=== PATIENT | female | born 1980 ===

== ENCOUNTER 2025-03-01 09:55 | Outpatient (AMB) | payer OTHER, SELFPAY ==
--- OUTSIDE RECORDS SUMMARY | 2023-12-23 11:52 | XMS_ITS | Encounter Summary ---
Author Organization [facility] Address [address] [place] [address] Care Team Providers Care Phonograph Cartridge Assembler Name Role Phone Jose Avalos MD Primary Care Provider [phone] Encounter Details Date Type Department Care Team (Late st Contact Info) Description 12/23/2023 12:52 PM EDT Hospital Encounter TH HISTORIC ENCOUNTERS [facility] ONLY Yana Cheney, TH[address]ES[address] [place] [address] Social History Tobacco Use Types Packs/Day Years Used Date Smoking Tobacco: Never Smokeless Tobacco: Never Alcohol Use Standard Drinks/Week Comments Yes 0 (1 standard drink = 0.6 oz pur e alcohol) Interpersonal Safety Answer Date Record ed Physical Abuse Unrecognized value 11/01/2024 Verbal Abuse Unrecognized value 11/01/2024 Comments No Sex and Gender Information Value Date Recorded Sex Assigned at Female 10/18/2024 2:54 PM EDT Legal Sex Female 11:39 PM EST Gender Identity Female 10/18/2024 2:54 PM EDT Sexual Orientation Straight 10/18/2024 2: 54 PM EDT documented as of this encounter Last Filed Vital Signs Vital Sign Reading Time Taken Comments Blood Pressure 138/85 12/23/2023 1:24 PM EDT Sitting Left arm Pulse 61 12/23/2023 1:24 PM EDT Temperature - - Respiratory Rate - - Oxygen Saturation - - Inhaled Oxygen Concentration - - Weight 56.7 kg (125 lb) 12/23/2023 1:24 PM EDT Simultaneous filing. User may not have seen previous data. Height 157.5 cm (5' 2 ) 12/23/2023 1:24 PM EDT Body Mass Index 22.86 12/23/2023 1:24 PM EDT documented in this encounter Functional Status * Calculated C-SSRS Risk Score (Lifetime/Recent) Answer Date of Assessment Author No Risk Indicated 02/09/2025 11:17 PM Rehana Valiente RN * [place] Suicide Severity Rating Scale (Screener/Recent Self-Report) Question Answer Date of Assessment Author 1. Wish to be (Past 1 Month) No 025 11:17 PM Rehana Valiente RN 2. Non-Specific Active Suici alan Thoughts (Past 1 Month) No 02/09/2025 11:17 PM Rehana Valiente RN 6. Suicidal Behavior (Lifetime) No 11:17 PM Rehana Valiente RN documented as of this encounter Progress Notes * THERESA Aguirre - 12/23/2023 1:00 PM EDT HPI: Manju Erazo is a 43 y.o. year old female referred to our center by Jose Avalos MD for evaluation and management of headaches 43 yo female with PMH fibromyalgia currently on Lyrica and Cymbalta, anxiety , depression she talk psychatrist she was Cymbalta for her mood to, psychotherapy , s/p biartic surgery 04/2019 she lost 203 lbs .PCOS, prediabetes, gastroparesis, GERD, nonalcoholic fatty liver disease, COY, migraines, chronic headaches, depression, insomnia, anxiety, Per patient she was recently diagnosed with adrenal insufficiency She will be seeing endocrinology in late November Interval history: Patient returns for follow-up visit. She had Botox injections performed by Dr. Valenzuela on 12/08/2023. She was also was prescribed Nurtec for migraine prevention at last visit and given Ubrelvy for acute rescue treatment. She states that she has had daily migraines. She had another ER visit for severe headache with blurry vision. She states Nurtec is not effective. Insurance did not cover Ubrelvy, although this was effective for her. MRI brain performed after last visit normal. Lyme, EMMA negative. Last visit history: Patient presents for evaluation of headache. Symptoms began about since she was 15yo . Generally, the headaches last about several hours and occur continuously. The headaches do not seem to be related to any time of the day. The headaches are usually severe, pounding, sharp, squeezing and throbbingand are located in bitemporal , radiating to occipital region The patient rates her most severe headaches a 10 on a scale from 1 to 10. Recently, the headaches have been increasing in severity, but decreasing in frequency. Work attendance or other daily activities are affected by the headaches. Precipitating factors include: light and loud noise . The headaches are usually used to have visual aura ,not anympre . Associated neurologic symptoms: dizziness and nausea , vomiting , phonophobia , photophobia . The patient denies speech difficulties and vision problems. Home treatment has included She failed amitriptyline , Topamax caused suicidal ideation , emagility failed , depakote allergic cant recall, Amivog , patient went to headache clinic in [facility] without help in her headaches she was on narcotics at that point. Other history includes: migraine headaches diagnosed in the past. She started botox 3 years ago , prior to utilizing Botox she would have 30 headaches associated with the neck pain she had headache reduction to 12 headaches with a good response in the first month that continues to wear off approaching the third month in the past with her previous neurologist she was treated for spasmodic torticollis and orofacial dyskinesias, over the time she did she did you notice a difference with her Botox patient was getting Botox injections different than the FDA approved sites, tox was stopped Patient more recently has been getting occipital nerve block with Dr. Mak she does not notice a lot of difference She uses Fioricet as abortive therapy Past Medical History: Diagnosis Date ??? Anxiety ??? Asthma ??? Depression ??? Heart disease ??? IBS (irritable bowel syndrome) ??? Migraine ??? Sleep apnea Current Outpatient Medications Medication Sig Dispense Refill ??? albuterol 108 (90 Base) MCG/ACT inhaler Inhale 2 puffs into the lungs every 4 (four) hours as needed for wheezing. ??? bjebjgcbre-duwxdmyxsuoix-xopugyhz 50-325-40 MG per tablet Take 1 tablet by mouth 2 (two) times a day. ??? Calcium Carbonate (CALCIUM 600 PO) Take by mouth. ??? Diclofenac Sodium 1 % GEL Apply 1 drop topically 4 (four) times a day. ??? DULoxetine (CYMBALTA) DR capsule 20 mg Take 1 capsule (20 mg total) by mouth daily. ??? DULoxetine (CYMBALTA) DR capsule 60 mg Take 1 capsule (60 mg total) by mouth daily. ??? hydrocortisone (ANUSOL-HC) 2.5 % CREA perianal cream Place around the anus 2 (two) times a day. ??? lansoprazole (lansoprazole) 30 MG capsule Take 1 capsule (30 mg total) by mouth daily. ??? Lifitegrast (Xiidra) 5 % SOLN Apply to eye. ??? meloxicam (MOBIC) 15 MG tablet Take 1 tablet (15 mg total) by mouth daily. ??? methylPREDNISolone (MEDROL DOSEPACK) 4 MG tablet follow package directions 21 tablet 0 ??? Multiple Vitamin tablet Take 1 tablet by mouth daily. ??? Plecanatide 3 MG TABS Take 1 tablet by mouth daily. ??? polyethylene glycol (MIRALAX) 17 g packet Take 17 g by mouth 2 (two) times a day. ??? pregabalin (LYRICA) capsule 50 mg Take 1 capsule (50 mg total) by mouth 3 (three) times a day. ??? rimegepant (Nurtec) 75 MG TBDP ODT Take 1 tablet (75 mg total) by mouth every other day. 15 tablet 3 ??? Ubrogepant (Ubrelvy) 100 MG TABS Take 100 mg by mouth 2 (two) times a day as needed. 16 tablet 3 No current facility-administered medications for this visit. Allergies Allergen Reactions ??? Abilify [Aripiprazole] ??? Amben [Aminobenzoate] ??? Celebrex [Celecoxib] ??? Doxepin ??? Ibuprofen ??? Imitrex [Sumatriptan] ??? Indomethacin ??? Lamictal [Lamotrigine] ??? Latuda [Lurasidone] ??? [place] ??? Metronidazole ??? Chantale-Be [Norethindrone] ??? Oxycontin [Oxycodone] ??? Percocet [Oxycodone-Acetaminophen] ??? Phenergan [Promethazine] ??? Prednisone ??? Reglan [Metoclopramide] ??? Reyvow [Lasmiditan] ??? Topamax [Topiramate] ??? Tramadol ??? Trazodone Chest pain ??? Trintellix [Vortioxetine] ??? Wellbutrin [Bupropion] ??? 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 Neurologic Exam: BP 138/85 (BP Location: Left arm, Patient Position: Sitting) Pulse 61 Temp 96.8 ??F (36 ??C) (Temporal) Ht 5' 2 (1.575 m) Wt 56.7 kg (125 lb) BMI 22.86 kg/m?? MS: AOx3 CN: perrla, , no red desaturation, fundoscopic exam normal bilaterally, V1-3 intact to LT, face symmetric, bilateral SCM/trapezius 5/5, tongue/uvula/palate midline Motor: 5/5 in all extremities Sensation: Intact to light touch, temperature, and vibration in all extremities Reflexes: 2+ in bilateral biceps and patellae, toes downgoing bilaterally Cerebellar: FNF intact bilaterally, FFM intact bilaterally, STEPHANY intact bilaterally, tandem gait normal, romberg negative Labs: Ordered Imaging: All images were reviewed by me. A/P: Manju Erazo is a 43 y.o. year old female referred to our center by Jose Avalos MD for evaluation and management of refractory migraine headache. She has failed multiple is scheduled for Botox injections on 03/06/24. In the meantime, for symptomatic treatment will add Medrol Dosepak to try to break cycle of migraine. Ubrelvy has worked well as an abortive treatment for migraine but insurance has not covered-???I will see if we have an option to appeal. She also expresses interest in consultation with a migraine specialist and will refer to [facility] headache clinic. -Add Medrol Dosepak -Try to obtain insurance approval for Ubrelvy for treatment of acute migraine -Plan for Botox in February -Enter referral for headache clinic at [facility] in 2 months for follow up The patient and I discussed the clinical picture during today's appointment. Additional time was spent prior to the actual appointment reviewing records, lab values and imaging results and preparing documentation for today's visit. There was also time spent following the in person visit documenting, arranging for further diagnostic testing and follow-up appointments. The entire time spent in thisprocess was greater than 30 minutes. The majority of the actual sdzx-qj-obfj visit was spent counseling the patient with respect to the current neurological picture. Yana Cheney PA-C documented in this encounter Plan of Treatment Upcoming Encounters Date Type Department Care Team (Late st Contact Info) Description 03/01/2025 1:00 PM EST Office Visit [facility] - [address] [place] [phone] Raina Valenzuela MD [address] [place] [phone] 03/20/2025 10:15 AM EST Office Visit Orthopedic Surgery - [address] [place] [address] Savannah iJmenez MD [address] [place] [phone] 03/20/2025 11:00 AM EST Evaluation [facility] [address] [place] [phone] Juli Moulton OT documented as of this encounter Visit Diagnoses Not on filedocumented in this encounter Care Teams Phonograph Cartridge Assembler Relationship Specialty Start Date End Date Jose Avalos MD PCP - General Internal Medicine 07/19/14 01/11/24 documented as of this encounter
[2025-03-01 09:58] VITALS: BMI 23.6
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
--- OUTSIDE RECORDS SUMMARY | 2025-03-01 12:11 | XMS_ITS | Encounter Summary ---
Author Organization [facility] Address [address] [place] [address] Phone Care Team Providers Care Hydraulic Engineer Name Role Phone Jose Avalos MD Primary Care Provider [phone] Encounter Details Date Type Department Care Team (Late Contact Info) Description 10/20/2023 Documentation Only [facility] [address] [place] [address] Denisha Philippe [address] [place] [phone] Social History Tobacco Use Types Packs/Day Years Used Date Smoking Tobacco: Never Smokeless Tobacco: Never Comments Unknown Sex and Gender Information Value Date Recorded Sex Assigned at Not on file Legal Sex Female 9:51 AM EDT Gender Identity Not on file Sexual Orientation Not on file documented as of this encounter Plan of Treatment Upcoming Encounters Date Type Department Care Team (Late st Contact Info) Description 04/23/2025 2:45 PM EST Office Visit [facility] [address] [place] [address] Curtis Weri MD [address] [place] [address] [place] [address] documented as of this encounter Visit Diagnoses Not on filedocumented in this encounter Care Teams Hydraulic Engineer Relationship Specialty Start Date End Date Jose Avalos MD PCP - General Internal Medicine 01/28/23 documented as of this encounter
--- OUTSIDE RECORDS SUMMARY | 2025-03-01 12:11 | XMS_ITS | Encounter Summary ---
Author Organization [facility] Address [address] [place] [address] Phone Care Team Providers Care Dope House Operator Helper Name Role Phone Jose Avalos MD Primary Care Provider [phone] Encounter Details Date Type Department Care Team (Late Contact Info) Description 04/24/2024 Documentation Only [facility] [address] [place] [address] Denisha Philippe [address] [place] [phone] Social History Tobacco Use Types Packs/Day Years [...] Visit [facility] [address] [place] [address] Curtis Weir MD [address] [place] [address] [place] [address] documented as of this encounter Visit Diagnoses Not on filedocumented in this encounter Care Teams Dope House Operator Helper Relationship Specialty Start Date End Date Jose Avalos MD PCP - General Internal Medicine 01/28/23 documented as of this encounter
--- OUTSIDE RECORDS SUMMARY | 2025-03-01 12:11 | XMS_ITS | Encounter Summary ---
Author Organization [facility] Address [address] [place] [address] Phone Care Team Providers Care Bill Of Lading Clerk Name Role Phone Jose Avalos MD Primary Care Provider [phone] Encounter Details Date Type Department Care Team (Late Contact Info) Description 08/16/2023 Documentation Only [facility] [address] [place] [address] Curtis Weir MD [address] [place] [address] [place] [phone] Social History Tobacco Use Types Packs/Day Years [...] Visit [facility] [address] [place] [address] Curtis Weir MD [address] [facility] [place] [address] documented as of this encounter Visit Diagnoses Not on filedocumented in this encounter Care Teams Bill Of Lading Clerk Relationship Specialty Start Date End Date Jose Avalos MD PCP - General Internal Medicine 01/28/23 documented as of this encounter
--- OUTSIDE RECORDS SUMMARY | 2025-03-01 12:11 | XMS_ITS | Encounter Summary ---
Author Organization [facility] Address [address] [place] [address] Phone Care Team Providers Care Managing Supervisor Name Role Phone Jose Avalos MD Primary Care Provider [phone] Encounter Details Date Type Department Care Team (Late st Contact Info) Description 08/11/2023 Documentation Only [facility] [address] [place] [address] [place] [phone] Social History Tobacco Use Types Packs/Day Years [...] Visit [facility] [address] [place] [address] Curtis Weir MD [address] [place] [address] [place] [address] documented as of this encounter Visit Diagnoses Not on filedocumented in this encounter Care Teams Managing Supervisor Relationship Specialty Start Date End Date Jose Avalos MD PCP - General Internal Medicine 01/28/23 documented as of this encounter
--- OUTSIDE RECORDS SUMMARY | 2025-03-01 12:11 | XMS_ITS | Encounter Summary ---
Author Organization [facility] Address [address] [place] [address] Phone Care Team Providers Care Ruffling Hemmer Automatic Name Role Phone Jose Avalos MD Primary Care Provider [phone] Encounter Details Date Type Department Care Team (Late Contact Info) Description 10/20/2023 Documentation Only [facility] [address] [place] [address] Denisha Philippe [address] [place] [phone] Social History Tobacco Use Types Packs/Day Years [...] Visit [facility] [address] [place] [address] Curtis Weir MD [address] [place] [address] [place] [address] documented as of this encounter Visit Diagnoses Not on filedocumented in this encounter Care Teams Ruffling Hemmer Automatic Relationship Specialty Start Date End Date Jose Avalos MD PCP - General Internal Medicine 01/28/23 documented as of this encounter
--- OUTSIDE RECORDS SUMMARY | 2025-03-01 12:11 | XMS_ITS | Encounter Summary ---
Author Organization [facility] Address [address] [place] [address] Phone Care Team Providers Care Early Breastfeeding Care Specialist Name Role Phone Jose Avalos MD Primary Care Provider [phone] Encounter Details Date Type Department Care Team (Late Contact Info) Description 10/20/2023 Documentation Only [facility] [address] [place] [address] Denisha Philippe [address] [place] [phone] Social History Tobacco Use Types Packs/Day Years [...] Visit [facility] [address] [place] [address] Curtis Weir MD [address] [place] [address] [place] [address] documented as of this encounter Visit Diagnoses Not on filedocumented in this encounter Care Teams Early Breastfeeding Care Specialist Relationship Specialty Start Date End Date Jose Avalos MD PCP - General Internal Medicine 01/28/23 documented as of this encounter
--- OUTSIDE RECORDS SUMMARY | 2025-03-01 12:11 | XMS_ITS | Encounter Summary ---
Author Organization [facility] Address [address] [place] [address] Phone Care Team Providers Care Milieu Manager Name Role Phone Jose Avalos MD Primary Care Provider [phone] Encounter Details Date Type Department Care Team (Late Contact Info) Description 04/24/2024 Documentation Only [facility] [address] [place] [address] Denisha Philippe [address] [place] [phone] Social History Tobacco Use Types Packs/Day Years [...] Visit [facility] [address] [place] [address] Curtis Weir MD [address] [place] [address] [place] [address] documented as of this encounter Visit Diagnoses Not on filedocumented in this encounter Care Teams Milieu Manager Relationship Specialty Start Date End Date Jose Avalos MD PCP - General Internal Medicine 01/28/23 documented as of this encounter
--- OUTSIDE RECORDS SUMMARY | 2025-03-01 12:11 | XMS_ITS | Encounter Summary ---
Author Organization [facility] Address [address] [place] [address] Phone Care Team Providers Care Gasoline Truck Crane Operator Name Role Phone Jose Avalos MD Primary Care Provider [phone] Encounter Details Date Type Department Care Team (Late st Contact Info) Description 10/22/2023 Documentation Only [facility] [address] [place] [address] Edy Craven [place] [address] [place] [phone] Social History Tobacco Use Types Packs/Day Years [...] Visit [facility] [address] [place] [address] Curtis Weir MD [address] [place] [address] [place] [address] documented as of this encounter Visit Diagnoses Not on filedocumented in this encounter Care Teams Gasoline Truck Crane Operator Relationship Specialty Start Date End Date Jose Avalos MD PCP - General Internal Medicine 01/28/23 documented as of this encounter
--- OUTSIDE RECORDS SUMMARY | 2025-03-01 12:11 | XMS_ITS | Clinical Summary ---
Author Organization [facility] Address [address] [place] [phone] Phone Care Team Providers Care Junior Project Manager Name Role Phone Physician, Pcp Unknown Primary Care Provider Celia vailable Allergies Active Allergy Reactions Criticality Noted Date Comments Aripiprazole High 08/08/2020 Other Reaction(s): dizziness/headache Zolpidem Rash Low 02/01/2017 Other Reaction(s): sleepwalk Headaches and rash Lumateperone 01/21/2025 Celecoxib Unknown High 08/23/2014 Doxepin 08/08/2020 Other Reaction(s): depression,angry Sumatriptan Rash 08/23/2014 Lurasidone Nausea And Vomiting,Dizziness 09/02/2021 Other Reaction(s): headaches [place] High 08/08/2020 Other Reaction(s): suicidal thoughts Norethindrone (Contraceptive) 04/25/2024 Oxcarbazepine 11/17/2024 Other Reaction(s): Behavioral Problems Worsened migraines, made her very angry, fidgety and more depressed. Oxycodone-Acetaminophen Itching High 10/05/2014 Other Reaction(s): Hives/Urticaria Promethazine 08/08/2020 Other Reaction(s): jumpy Metoclopramide Hcl 04/25/2024 Lasmiditan 04/30/2023 Tramadol Other High 06/25/2017 Other Reaction(s): Suicidal thoughts Suicidal ideation Trazodone Headache Low 12/28/2016 Other Reaction(s): OTHER Chest pain Vortioxetine High 07/15/2017 Other Reaction(s): headache insomnia Headache, insomnia Vilazodone 04/25/2024 Cariprazine Headache 11/09/2022 Bupropion Hcl 04/25/2024 Medications alcohol swabs pads, medicated by Not Applicable route. 1 Active albuterol HFA (PROAIR HFA ; PROVENTIL HFA ; VENTOLIN HFA) 90 mcg/actuation inhaler Active topiramate (TOPAMAX) 25 mg tablet Take 4 tablets (100 mg total) by mouth 2 (two) times a day. Active pregabalin (LYRICA) 300 mg capsule Take 1 capsule (300 mg total) by mouth 2 (two) times a day. Active lansoprazole (PREVACID) [address] capsule Take 1 capsule (30 mg total) by mouth 1 (one) time each day before breakfast. Do not crush or chew. Active methocarbamoL (ROBAXIN) 750 mg tablet Take 1 tablet (750 mg total) by mouth 4 (four) times a day for 10 days. 40 each 5 Active venlafaxine (EFFEXOR) 75 mg tablet Take 1 tablet (75 mg total) by mouth 1 (one) time each day. Active LORazepam (ATIVAN) 1 mg tablet Take 1 tablet (1 mg total) by mouth every 6 (six) hours if needed for anxiety. Active tiZANidine (ZANAFLEX) 4 mg capsule Take 1 capsule (4 mg total) by mouth 3 (three) times a day. Active diclofenac (VOLTAREN) 50 mg EC tablet Take 1 tablet (50 mg total) by mouth 2 (two) times a day. Do not crush, chew, or split. Active diclofenac (VOLTAREN) 1 % topical gel Apply 1 g topically 3 (three) times a day. Active lidocaine 4 % patch Apply 1 patch topically. Active multivitamin with minerals tablet Take 1 tablet by mouth 1 (one) time each day. Active acetaminophen (TYLENOL 8 HOUR) 650 mg 8 hr tabletIndicatio ns:Post-operati ve state,Closed displaced fracture of middle third of scaphoid of left wrist with malunion, subsequent encounter Take 1 tablet (650 mg total) by mouth every 8 (eight) hours if needed for mild pain. Do not crush, chew, or split. 30 tablet Active Active Problems Problem Noted Date Diagnosed Date Post-operative state 11/21/2024 Hypercholesterolemia 10/24/2024 Irritable bowel syndrome (IBS) 10/24/2024 Major depressive disorder, s milton episode, severe without psychotic features 10/24/2024 H/O abdominal hysterectomy 10/24/2024 Overview (10/24/2024): 2021 H/O gastric sleeve 10/24/2024 Overview (10/24/2024): 2019 H/O hemorrhoids 10/24/2024 H/O section 10/24/2024 Closed displaced fracture of middle third of navicular bone of left wrist 10/13/2024 Carpal tunnel syndrome of right wrist 10/13/2024 Anxiety and depression 10/13/2024 Mixed bipolar disorder 10/13/2024 Asthma 10/13/2024 Tourette syndrome 01/20/2024 Chronic migraine without aur a without status migrainosus, not intractable 10/29/2023 Fibromyalgia 10/29/2023 COY on CPAP 08/08/2020 Overview (10/13/2024): [facility] Home Sleep Apnea Test: Date 05/27/2020; Wt 150#; BMI 28; LIVIER (AHI) 5, Obstructive apneas 1; Mixed apneas 0; Central apneas 6; hypopneas 30; average oxygen saturation 96% (lowest 86% without saturations <88% for 5% or more of study) - Obstructive Sleep Apnea - mild; mostly hypopneas; without sleep related hypoventilation by 2020 home sleep apnea test. Intestinal malabsorption following gastrectomy 0 07/25/2019 Iron deficiency 11/12/2018 Gastroesophageal reflux disease 07/08/2016 Gastroparesis 07/08/2016 Overview (10/13/2024): Last Assessment & Plan: Unsure if this is an accurate dx given equivocal gastric emptying study results. Has had extensive GI work up at OSHs w/ inconclusive results. Will not pursue further testing at this time - gave pt samples of peppermint oil so help w/ GI sxs - encouraged to consider Ensure to meet caloric needs - CTM Fatty liver disease, nonalcoholic 07/08/2016 Migraines 08/23/2014 PCOS (polycystic ovarian syndrome) 08/23/2014 Encounters Date Type Department Care Team Description 02/09/2025 11:09 PM EST - 02/10/2025 4:25 AM [facility] Emergency [address] [place] [phone] Accidental drug ingestion, initial encounter (Primary Dx) Discharge Disposition: Home or Self Care 01/30/2025 1:00 PM EST Office Visit Orthopedic Surgery [address] [phone] Savannah Jimenez MD Follow-up exam (Primary Dx); Post-operative state; Closed displaced fracture of middle third of scaphoid bone of left wrist, initial encounter 01/22/2025 1:19 AM EST - 01/22/2025 2:00 AM [facility] Emergency [address] [place] [phone] Karson Castillo MD Anxiety (Primary Dx); Acute anxiety Discharge Disposition: Home or Self Care 01/21/2025 5:08 PM EST - 01/21/2025 8:03 PM [facility] Emergency [address] [place] [phone] Tj Snowden MD Anxiety (Primary Dx) Discharge Disposition: Home or Self Care 01/15/2025 4:00 PM EST Office Visit Orthopedic Surgery [address] [phone] Ariadna Currie PA Post-operative state (Primary Dx) 01/09/2025 3:30 PM EDT Office Visit Orthopedic [address] [phone] Savannah Jimenez MD Post-operative state (Primary Dx); Closed displaced fracture of middle third of scaphoid of left wrist with malunion, subsequent encounter 12/25/2024 1:00 PM EDT Office Visit Orthopedic Surgery [facility] [address] [facility] [address] [place] [phone] Savannah Jimenez MD Closed displaced fracture of middle third of scaphoid of left wrist with malunion, subsequent encounter (Primary Dx); Post-operative state 12/25/2024 Telephone Orthopedic Surgery [facility] [address] [phone] Savannah Jimenez MD 12/21/2024 1:15 PM EDT Office Visit Orthopedic Surgery [facility] [address] [phone] Ariadna Currie PA Wrist pain (Primary Dx) 12/18/2024 Telephone Orthopedic Surgery [facility] [address] [phone] Savannah Jimenez MD 12/04/2024 11:30 AM EDT Office Visit Orthopedic Surgery [facility] [address] [phone] Ariadna Currie PA Post-operative state (Primary Dx); Closed displaced fracture of middle third of scaphoid of left wrist with malunion, subsequent encounter from Last 3 Months Surgical History Surgery Date Site/Laterality Comments OTHER SURGICAL HISTORY 10/14/2015 PROCEDURE: GASTRIC EMPTYNG IMAG STD W/SM BWL TRANSIT; COMMENT: Evidence of mild gastroparesis OTHER SURGICAL HISTORY 11/17/2016 PROCEDURE: OUTSIDE ENDOSCOPY; COMMENT: EGD for placement of Correa 24 pH study. normal duodenum and esophagus. gastritis. UPPER GASTROINTESTINAL ENDOSCOPY 03/31/2017 PROCEDURE: FL UPPER GI ENDOSCOPY PERFORMED; COMMENT: negative CARPAL TUNNEL RELEASE Right PROCEDURE: HISTORICAL CARPAL TUNNEL REL UPPER GASTROINTESTINAL ENDOSCOPY 10/18/2015 PROCEDURE: FL UPPER GI ENDOSCOPY PERFORMED; COMMENT: Normal, biopsy consistent with chronic gastritis, no H. pylori OTHER SURGICAL HISTORY 04/2019 PROCEDURE: FL LAPT RPR PARAESOPH HIATAL HERNIA W/MESH BARIATRIC SURGERY 04/2019 PROCEDURE: FL LAPS GSTRC RSTRICTIV PX LONGITUDINAL GASTRECTOMY UPPER GASTROINTESTINAL ENDOSCOPY 06/18/2020 PROCEDURE: FL UPPER GI ENDOSCOPY PERFORMED; COMMENT: Normal post gastric sleeve procedure appearance. COLONOSCOPY 06/18/2020 PROCEDURE: HISTORICAL COLONOSCOPY; COMMENT: Within normal limits, no colon cancer screening indicated for 10 years. SECTION 2002 PROCEDURE: SECTION CARPAL TUNNEL RELEASE 2006 Right PROCEDURE:CARPAL TUNNEL RELEASE OTHER SURGICAL HISTORY 2019 PROCEDURE:gastric sleeve CHOLECYSTECTOMY 2004 PROCEDURE:CHOLECYSTECTOMY HYSTERECTOMY 03/2022 PROCEDURE:HYSTERECTOMY HEMORRHOID SURGERY N/A Medical History Medical History Date Comments Insomnia 08/23/2014 DX:Insomnia Major depression 08/23/2014 DX:Major depres gibson Migraines 08/23/2014 DX:Migraines PCOS (polycystic ovarian syndrome) 08/23/2014 DX:PCOS (polycystic ovarian syndrome) Gastroparesis 07/08/2016 DX:Gastroparesis Gastroesophageal reflux disease 07/08/2016 DX:Gastroesophageal reflux disease Fatty liver disease, nonalcoholic 07/08/2016 DX:Fatty liver disease, nonalcoholic COY on CPAP DX:COY on CPAP Prediabetes 03/01/2019 DX:Prediabetes Class 3 severe obesity due t o excess calories without serious comorbidity with body mass index (BMI) of 40.0 to 44.9 in adult ([facility] V24, [facility] V28) 10/04/2018 DX:Class 3 severe obesity du e to excess calories without serious comorbidity with body mass index (BMI) of 40.0 to 44.9 in adult ([facility]) Generalized anxiety disorder 09/24/2016 DX: Generalized anxiety disorder Iron deficiency 11/12/2018 DX:Iron deficien cy Prolonged Q-T interval on ECG 12/28/2016 DX :Prolonged Q-T interval on ECG Vitamin D deficiency 11/12/2018 DX:Vitamin D deficiency Heart disease DX:Heart disease Asthma DX:Asthma IBS (irritable bowel syndrome) D X:IBS (irritable bowel syndrome) Depression DX:Depression Anxiety DX:Anxiety Migraine DX:Migraine Sleep apnea DX:Sleep apnea Tourette syndrome Family History Medical History Relation Name Comments Diabetes Brother 2 Heart attack Brother 2 Diabetes Father Heart disease Father Hyperlipidemia Father Hypertension Father Obesity Father Other: heart disease Father Heart attack Maternal Grandfather Other: hypoglycemia Maternal Grandmother Cirrhosis Mother Diabetes Mother Ear Infections Mother Heart disease Mother Hyperlipidemia Mother Hypertension Mother Other: kidney disease Mother Breast cancer Other mat aunt Colon cancer Neg Hx Relation Name Status Comments Brother 1 Alive Brother 2 Father Alive Maternal Grandfather Maternal Grandmother Mother Alive Other mat aunt Alive Paternal Grandfather Paternal Grandmother Sister 1 Alive Sister 2 Alive Sister 3 Alive Social History Tobacco Use Types Packs/Day Years Used Date Smoking Tobacco: Never Smokeless Tobacco: Never Tobacco Cessation:Counseling Given: Not Answered Alcohol Use Standard Drinks/Week Comments Yes 0 [...] Orientation Straight 10/18/2024 2: 54 PM EDT Last Filed Vital Signs Vital Sign Reading Time Taken Comments Blood Pressure 99/55 02/10/2025 12:50 AM EST Pulse 49 02/10/2025 12:50 AM EST Temperature 36 C (96.8 F) 02/09/2025 11:14 PM EST Respiratory Rate 18 02/10/2025 12:5 0 AM EST Oxygen Saturation 100% 02/10/2025 12: 50 AM EST Inhaled Oxygen Concentration - - Weight 62.1 kg (136 lb 14.5 oz) 025 11:14 PM EST Height 157.5 cm (5' 2 ) 01/30/2025 12:5 3 PM EST Body Mass Index 25.04 01/30/2025 12:53 PM EST Plan of Treatment Upcoming Encounters Date Type Department Care Team (Late st Contact Info) Description 03/01/2025 1:00 PM EST Office Visit [facility] 175 [facility] [address] [place] [phone] Raina Valenzuela MD 175 [place] [address] 03/20/2025 10:15 AM EST Office Visit Orthopedic Surgery [place] 175 [facility] [address] [place] [phone] Savannah Jimenez MD 175 [facility] [address] [place] [phone] 03/20/2025 11:00 AM EST Evaluation [facility] Therapy [address] [phone] Juli Moulton, ANITA Health Maintenance Due Date Last Done Comments Non-Opioid Controlled Substance Agreement 1980 Pneumococcal Vaccine: Pediatrics (0 to 5 Years) and At-Risk Patients (6 to 49 Years) (1 of 2 - PCV) 06/03/1999 HPV Vaccines (1 - 3-dose SCDM series) 06/03/2007 Hepatitis B Vaccines (3 of 3 - 3-dose series) 02/04/2018 12/10/2017, 1980 Cholesterol Screening (Lipid Panel) 02/21/2022 HIV Screening 02/21/2022 Hepatitis C Screening 02/21/2022 Medicare Annual Wellness Visit 02/21/2022 Social Influencers of Health Screening 02/21/2022 Breast Cancer Screening 09/17/2023 09/16/2021 Depression Screening 03/15/2024 Cervical Cancer Screening: Pap Smear 09/10/2024 09/10/2021 COVID-19 Vaccine ( season) 2024 07/21/2021, 07/01/2020, 06/09/2020 Drug Screen 05/15/2025 05/15/2024 DTaP,Tdap,and Td Vaccines (3 - Td or Tdap) 12/06/2027 12/05/2017, 10/14/2003 RSV Immunization Adult Patients (1 - 1-dose 75+ series) 06/03/2055 MMR Vaccines Completed 1981 Varicella Vaccines Aged Out 12/10/2017 No longer eligible based on patient's age to complete this topic Influenza Vaccine Completed 11/21/2024, , 11/30/2022, Additional history exists HIB Vaccines Aged Out No longer eligi ble based on patient's age to complete this topic Hepatitis A Vaccines Aged Out No long er eligible based on patient's age to complete this topic IPV Vaccines Aged Out No longer eligi ble based on patient's age to complete this topic Meningococcal ACWY Vaccine Aged Out N o longer eligible based on patient's age to complete this topic Meningococcal B Vaccine Aged Out No l onger eligible based on patient's age to complete this topic RSV Immunization Patients Under 20 months Aged Out No longer eligible based on patient's age to complete this topic Medical Devices Implanted Type Area Box Estimator Device Identifier Shelf Expiration Date Model / Serial / Lot Screw 2.5mm Headless Length 20mm - Sn/A - [id number] Implanted:Qty: 1 on 11/01/2024 by Savannah Jimenez MD at [facility] Internal and External Fixation Left: Wrist [employer] [id number] / N/A / N/A Procedures Procedure Name Priority Date/Time Associated Diagnosis Comments HCG, SERUM, QUALITATIVE STAT Add-on 02/10/2025 2:11 AM EST CBC WITH AUTO DIFFERENTIAL STAT 02/10/2025 2:11 AM EST SALICYLATE LEVEL STAT 02/10/2025 2:11 AM EST ACETAMINOPHEN LEVEL STAT 02/10/2025 2 :11 AM EST ETHANOL STAT 02/10/2025 2:11 AM EST COMPREHENSIVE METABOLIC PANEL STAT 02/10/2025 2:11 AM EST CBC AND DIFFERENTIAL STAT 02/10/2025 2:11 AM EST XR WRIST 3+ VIEWS LEFT Routine 01/30/2025 1:18 PM EST Follow-up exam ECG 12-LEAD STAT 01/22/2025 12:11 AM EST ECG ANNOTATED 01/22/2025 CBC WITH AUTO DIFFERENTIAL STAT 01/21/2025 5:46 PM EST TROPONIN I HIGH SENSITIVITY STAT 01/21/2025 5:46 PM EST COMPREHENSIVE METABOLIC PANEL STAT 01/21/2025 5:46 PM EST CBC AND DIFFERENTIAL STAT 01/21/2025 5:46 PM EST ECG 12-LEAD STAT 01/21/2025 5:45 PM EST CAST APPLICATION Routine 01/15/2025 4:00 PM EST Post-operative state XR WRIST 3+ VIEWS LEFT Routine 01/09/2025 3:47 PM EDT Post-operative state CAST APPLICATION Routine 01/09/2025 3:30 PM EDT Post-operative state Closed displaced fracture of middle third of scaphoid of left wrist with malunion, subsequent encounter XR WRIST 3+ VIEWS LEFT Routine 12/21/2024 1:46 PM EDT Wrist pain CAST APPLICATION Routine 12/21/2024 1:15 PM EDT Wrist pain XR WRIST 3+ VIEWS LEFT Routine 12/04/2024 12:01 PM EDT Post-operative state CAST APPLICATION Routine 12/04/2024 11:3 0 AM EDT Post-operative state DRUG ABUSE SCREEN 8A PANEL, URINE STAT 05/15/2024 11:59 AM EST SCREENING MAMMOGRAPHY BI 2-VIEW BREAST INC CAD Routine 09/16/2021 7:58 AM EDT Encounter for screening mammogram for malignant neoplasm of breast PAP SMEAR Routine 09/10/2021 from Last 3 Months or Most Recently Relevant to Health Maintenance Results * (ABNORMAL) CBC auto differential (02/10/2025 2:11 AM EST) Only the most recent of2 resultswithin the time period is included. WBC 5.9 4.8 - 10.8 K/[facility] LAB HEMETOLOGY METHOD 02/10/2025 2:17 AM EST [facility] RBC 3.60(L) 3.80 - 4.80 /[facility] LAB HEMETOLOGY METHOD 02/10/2025 2:17 AM [facility] Hemoglobin 11.7 11.5 - 16.0 g/dL LAB HEMETOLOGY METHOD 02/10/2025 2:17 AM [facility] Hematocrit 34.2(L) 35.0 - 47.0 % LAB HEMETOLOGY METHOD 02/10/2025 2:17 AM [facility] MCV 96.1 79.0 - 98.0 FL LAB HEMETOLOGY METHOD 02/10/2025 2:17 AM [facility] MCH 32.9(H) 27.0 - 32.0 pcg LAB HEMETOLOGY METHOD 02/10/2025 2:17 AM [facility] MCHC 34.2 32.0 - 37.0 g/dL LAB HEMETOLOGY METHOD 02/10/2025 2:17 AM [facility] RDW 11.9 11.0 - 15.0 % LAB HEMETOLOGY METHOD 02/10/2025 2:17 AM [facility] Platelets 221 130 - 400 K/mcL LAB HEMETOLOGY METHOD 02/10/2025 2:17 AM [facility] MPV 10.4 7.0 - 11.0 FL LAB HEMETOLOGY METHOD 02/10/2025 2:17 AM [facility] NRBC 0.0 <1.0 % LAB HEMETOLOGY METHOD 02/10/2025 2:17 AM [facility] NRBC Absolute 0.00 <0.10 K/mcL LAB HEMETOLOGY METHOD 02/10/2025 2:17 AM [facility] Neutrophils Relative 52.8 % LAB HEMETOLOGY METHOD 02/10/2025 2:17 AM [facility] Lymphocytes Relative 36.3 % LAB HEMETOLOGY METHOD 02/10/2025 2:17 AM [facility] Monocytes Relative 8.5 % LAB HEMETOLOGY METHOD 02/10/2025 2:17 AM [facility] Eosinophils Relative 1.5 % LAB HEMETOLOGY METHOD 02/10/2025 2:17 AM [facility] Basophils Relative 0.7 % LAB HEMETOLOGY METHOD 02/10/2025 2:17 AM [facility] Immature Granulocytes Relative 0.2 % LAB HEMETOLOGY METHOD 02/10/2025 2:17 AM [facility] Neutrophils Absolute 3.12 1.50 - 7.00 K/mcL LAB HEMETOLOGY METHOD 02/10/2025 2:17 AM [facility] Lymphocytes Absolute 2.14 1.00 - 5.00 K/mcL LAB HEMETOLOGY METHOD 02/10/2025 2:17 AM [facility] Monocytes Absolute 0.50 0.20 - 1.00 K/mcL LAB HEMETOLOGY METHOD 02/10/2025 2:17 AM [facility] Eosinophils Absolute 0.09 0.00 - 0.50 K/mcL LAB HEMETOLOGY METHOD 02/10/2025 2:17 AM [facility] Basophils Absolute 0.04 0.00 - 0.20 K/mcL LAB HEMETOLOGY METHOD 02/10/2025 2:17 AM [facility] Immature Granulocytes Absolute 0.01 0.00 - 0.03 K/mcL LAB HEMETOLOGY METHOD 02/10/2025 2:17 AM [facility] Blood Venous blood specimen / Unknown Venipuncture / Unknown 02/10/2025 2:11 AM EST 02/10/2025 2:12 AM EST us Nataliia CARDENAS LAB BLOOD ORDERABLES Fin al Result [facility] [address] [place] [address], * hCG, serum, qualitative (02/10/2025 2:11 AM EST) hCG Qual Negative Negative 02/10/2025 4:31 AM EST [facility] Blood Venous blood specimen / Unknown Venipuncture / Unknown 02/10/2025 2:11 AM EST 02/10/2025 2:12 AM EST Nataliia CARDENAS LAB BLOOD ORDERABLES Fin al Result Performing Organization Address City/[facility]/ZIP Co de Phone Number [facility] [address] [place] [address], [place] [phone] * Ethanol (02/10/2025 2:11 AM EST) Ethanol Level <3 0 - 10 mg/dL 02/10/2025 3:53 AM EST [facility] Blood Venous blood specimen / Unknown Venipuncture / Unknown 02/10/2025 2:11 AM EST 02/10/2025 2:12 AM EST Nataliia CARDENAS LAB BLOOD ORDERABLES Fin al Result Performing Organization Address [facility] Phone Number [facility] [address] [place] [address], [place] [phone] * (ABNORMAL) Acetaminophen level (02/10/2025 2:11 AM EST) Acetaminophen Level <2.0(L) 10.0 - 30.0 mcg/mL 02/10/2025 2:47 AM EST [facility] Blood Venous blood specimen / Unknown Venipuncture / Unknown 02/10/2025 2:11 AM EST 02/10/2025 2:12 AM EST Nataliia CARDENAS LAB BLOOD ORDERABLES Fin al Result Performing Organization Address City/[facility]/ZIP Co de Phone Number [facility] [address] [place] [address], [place] [phone] * Salicylate level (02/10/2025 2:11 AM EST) [facility] Salicylate Level <3.0 2.0 - 29.0 mg/dL 02/10/2025 3:53 AM [facility] Blood Venous blood specimen / Unknown Venipuncture / Unknown 02/10/2025 2:11 AM EST 02/10/2025 2:12 AM EST Nataliia CARDENAS LAB BLOOD ORDERABLES Fin al Result [facility] [address] [place] [address], [place] [phone] * (ABNORMAL) Comprehensive metabolic panel (02/10/2025 2:11 AM EST) Only the most recent of2 resultswithin the time period is included. [facility] Sodium 141 133 - 145 mmol/L 02/10/2025 2:47 AM [facility] Potassium 3.8 3.5 - 5.5 mmol/L 02/10/2025 2:47 AM [facility] Chloride 110 96 - 110 mmol/L 02/10/2025 2:47 AM [facility] CO2 24 21 - 32 mmol/L 02/10/2025 2:47 AM [facility] Anion Gap 7 3 - 11 02/10/2025 2:47 AM [facility] Glucose 91 70 - 100 mg/dL 02/10/2025 2:47 AM [facility] BUN 16 5 - 25 mg/dL 02/10/2025 2:47 AM [facility] Creatinine 0.95 0.50 - 1.10 mg/dL 02/10/2025 2:47 AM EST [facility] eGFR 76 >=60 mL/min/1. 73m2 02/10/2025 2:47 AM [facility] Comment:Calculation based on the Chronic Kidney Disease Epidemiology Collaboration (CKD-EPI) equation refit without adjustment for race. BUN/Creatinine Ratio 16.8 02/10/2025 2:47 AM [facility] Calcium 8.0(L) 8.5 - 10.5 mg/dL 02/10/2025 2:47 AM [facility] AST (SGOT) 16 10 - 42 unit/L 02/10/2025 2:47 AM [facility] ALT (SGPT) 13 10 - 60 unit/L 02/10/2025 2:47 AM [facility] Alkaline Phosphatase 51 42 - 121 unit/L 02/10/2025 2:47 AM [facility] Total Protein 6.1 6.0 - 8.0 g/dL 02/10/2025 2:47 AM [facility] Albumin 3.6 3.2 - 5.0 g/dL 02/10/2025 2:47 AM [facility] Total Bilirubin 0.3 0.0 - 1.4 mg/dL 02/10/2025 2:47 AM [facility] Blood Venous blood specimen / Unknown Venipuncture / Unknown 02/10/2025 2:11 AM EST 02/10/2025 2:12 AM EST us Nataliia CARDENAS LAB BLOOD ORDERABLES Fin al Result [facility] [address] [place] [address], * XR Wrist 3+ Views Left (01/30/2025 1:18 PM EST) Only the most recent of4 resultswithin the time period is included. Anatomical Region Laterality Modality Upper Extremities, Wrist Left Compute d Radiography Narrative 01/30/2025 1:59 PM EST AP, lateral, oblique and scaphoid view of the left wrist was obtained on 01/30/2025. There are prior images which show repair of scaphoid mid waist fracture. On today's films there appears to be bridging bone across the fracture site most noted on the oblique and scaphoid views. No backing out or loosening of the hardware is evident. No carpal collapse. Impression: Healing scaphoid fracture Savannah Jimenez MD IMG XR PROCEDURES Final Resul t * ECG 12 lead (01/22/2025 12:11 AM EST) Only the most recent of2 resultswithin the time period is included. [facility] Ventricular Rate ECG 65 BPM GEMUSE Atrial Rate 65 BPM GEMUSE P-R Interval 150 ms GEMUSE QRS Duration 86 ms GEMUSE Q-T Interval 518 ms GEMUSE QTc 538 ms GEMUSE P Wave [place] 68 degrees GEMUSE R [place] 32 degrees GEMUSE T [place] 49 degrees GEMUSE ECG Interpretation Normal sinus rhythm Prolonged QT Abnormal ECG When compared with ECG of 21-JAN-2025 17:45, No significant change was found Confirmed by MD Flaco, Ely ([id number]) on 01/22/2025 4:59:08 PM GEMUSE 01/22/2025 12:1 1 AM EST 01/22/2025 4:59 PM EST Karson Castillo MD ECG ORDERABLES Final Resul t GEMUSE * ECG-Annotated (01/22/2025) Provider Onbase ECG ORDERABLES Final Result * Troponin I High Sensitivity (01/21/2025 5:46 PM EST) [facility] [facility] Sensitivity Troponin I 4 <=54 ng/L LAB CHEMISTRY METHOD 01/21/2025 6:47 PM EST [facility] Blood Venous blood specimen / Unknown Venipuncture / Unknown 01/21/2025 5:46 PM EST 01/21/2025 6:23 PM EST [facility]hav[facility] ([facility] - 01/21/2025 6:47 PM EST High levels of biotin in samples may falsely decrease hsTroponin values. Use caution when interpreting hsTroponin results in patients taking biotin who exhibit renal impairment (eGFR <60) or in patients taking more than 20 mg/day of biotin. us Tj Snowden MD LAB BLOOD ORDERABLES Hallie l Result [facility]) [facility] [address] [place] [address], [place] [phone] * Casting (01/15/2025 4:00 PM EST) Ariadna Celaya PA - 01/15/2025 4:00 PM EST THERESA Lehman 01/15/2025 4:16 PM Casting Performed by: THERESA Lehman Authorized by: THERESA Lehman Informed Consent: Laterality: Left Relevant images/test results available and reviewed: yes Health status cleared: Yes Procedure/treatment, purpose, treatment alternatives, risks/potential complications and benefits explained: yes Risk/complications/benefits details: Cast precautions given Patient questions answered: yes Patient agrees, verbalizes understanding, and wants to proceed: yes Consent given by: Patient Informed consent discussion completed by Physician/FRANCES with patient: Verbal Pre-procedure timeout performed: yes Location: Hand Site: Left hand Distal Perfusion: normal Distal Sensation: normal Manipulation Performed?: No Immobilization: Cast Cast Type: Thumb spica [place] Cast?: no [place] Cast Modifications: cast removal Supplies Used: Thermoplastics, strapping, fasteners, padding, and other materials Ariadna CARDENAS IN CLINIC/BEDSIDE ORDERABLES Final Result * Casting (01/09/2025 3:30 PM EDT) Savannah Sanchez MD - 01/09/2025 3:30 PM EDT Savannah Jimenez MD 01/09/2025 5:29 PM Casting Performed by: Savannah Jimenez MD Authorized by: Savannah Jimenez MD Informed Consent: Laterality: Left Location: Wrist Site: Left wrist Immobilization: Cast Cast Type: Thumb spica [place] Cast?: no [place] Cast Supplies Used: Ortho-Glass Comments: [place], 2 rolls of cast padding, and 2 rolls of 2 inch fiberglass were utilized for a thumb spica cast on the left. Patient tolerated well. Savannah Jimenez MD IN CLINIC/BEDSIDE ORDERABLES Final Result * Casting (12/21/2024 1:15 PM EDT) Ariadna Celaya PA - 12/21/2024 1:15 PM EDT THERESA Lehman 12/21/2024 2:57 PM Casting Performed by: THERESA Lehman Authorized by: THERESA Lehman Informed Consent: Laterality: Left Relevant images/test results available and reviewed: yes Health status cleared: Yes Procedure/treatment, purpose, treatment alternatives, risks/potential complications and benefits explained: yes Risk/complications/benefits details: Cast percautions given Patient questions answered: yes Patient agrees, verbalizes understanding, and wants to proceed: yes Consent given by: Parent Informed consent discussion completed by Physician/FRANCES with patient: Verbal Pre-procedure timeout performed: yes Location: Wrist Site: Left wrist Distal Perfusion: normal Immobilization: Cast Cast Type: Thumb spica [place] Cast?: no [place] Cast Supplies Used: Thermoplastics, strapping, fasteners, padding, and other materials Ariadna CARDENAS IN CLINIC/BEDSIDE ORDERABLES Final Result * Casting (12/04/2024 11:30 AM EDT) Savannah Sanchez MD - 12/04/2024 11:30 AM EDT THERESA Lehman 12/04/2024 12:43 PM Casting Performed by: THERESA Lehman Authorized by: THERESA Lehman Informed Consent: Laterality: Left Relevant images/test results available and reviewed: yes Health status cleared: Yes Procedure/treatment, purpose, treatment alternatives, risks/potential complications and benefits explained: yes Patient questions answered: yes Patient agrees, verbalizes understanding, and wants to proceed: yes Consent given by: Patient Informed consent discussion completed by Physician/FRANCES with patient: Verbal Pre-procedure timeout performed: yes Location: Wrist Site: Left wrist Distal Perfusion: normal Distal Sensation: normal Manipulation Performed?: No Immobilization: Cast Cast Type: Thumb spica [place] Cast?: no [place] Cast Modifications: cast removal Supplies Used: Thermoplastics, strapping, fasteners, padding, and other materials us Ariadna CARDENAS IN CLINIC/BEDSIDE ORDERABLES Final Result * (ABNORMAL) Drug abuse screen 8a panel, urine (05/15/2024 11:59 AM EST) Amphetamine Screen, Ur Negative Negative LAB CHEMISTRY METHOD 5 1:13 PM [facility] Comment:Certain OTC medicati ons containing ephedrine, phenylephrine, pseudoephedrine and phenylpropanolamine can cause false positive results. Barbiturate Screen, Ur Positive(A ) Negative LAB CHEMISTRY METHOD 5 1:13 PM [facility] Benzodiazepine Screen, Ur Negative Negative LAB CHEMISTRY METHOD 5 1:13 PM [facility] Cocaine Screen, Ur Negative Negative LAB CHEMISTRY METHOD 5 1:13 PM [facility] Opiate Screen, Ur Negative Negative LAB CHEMISTRY METHOD 5 1:13 PM [facility] Cannabinoid (THC) Screen, Ur Positive(A ) Negative LAB CHEMISTRY METHOD 5 1:13 PM [facility] Comment:Specimens from patie nts taking pantoprazole sodium (Protonix) have been shown to produce false positive results. Oxycodone Screen, Ur Negative Negative LAB CHEMISTRY METHOD 5 1:13 PM [facility] Fentanyl, Ur Negative Negative LAB CHEMISTRY METHOD 5 1:13 PM [facility] Urine Urine specimen obtained by clean catch procedure / Unknown Non-blood Collection / Unknown 05/15/2024 11:59 AM EST 05/15/2024 12:38 PM EST Narrative [facility] - 05/15/2024 1:13 PM EST Assay cutoffs: Amphetamines 1000 ng/mL Barbiturates 200 ng/mL Benzodiazepines 200 ng/mL Cocaine 300 ng/mL Fentanyl 1 ng/mL Opiates 300 ng/mL Oxycodone 100 ng/mL THC 50 ng/mL Semi-quantitative assay for screening purposes only. Unconfirmed screening result should not be used for non-medical purposes. *ALTERNATE METHOD CONFIRMATION DONE UPON REQUEST ONLY* us Vinayak Piña MD LAB URINE ORDERABLES Hallie l Result [facility] [address] [place] [address], [place] [phone] * SCREENING MAMMOGRAPHY BI 2-VIEW BREAST INC CAD (09/16/2021 7:58 AM EDT) Anatomical Region Laterality Modality Radiographic Barbara ging 09/10/2021 10:0 5 AM EDT Narrative 09/16/2021 12:11 PM EDT This is a summary report. The complete report is available in the patient's medical record. If you cannot access the medical record, please contact the sending organization for a detailed fax or copy. Baseline screening, full field digital 2D and 3D mammography, reviewed with CAD. The breasts are composed of fatty and fibroglandular tissue. No suspicious mass, architectural distortion or suspicious calcifications are identified. IMPRESSION: : No mammographic evidence of malignancy. BIRADS 1-Negative; N. 5 year breast cancer risk assessment 0.4 % Lifetime breast cancer risk assessment 6.3 % Breast cancer risk category Low (<15%) Procedure Note Virgen Leblanc MD - 03/03/2022 This is a summary report. The complete report is available in thepatient's medical record. If you cannot access the medical record, pleasecontact the sending organization for a detailed fax or copy. Baseline screening, full field digital 2D and 3D mammography, reviewedwith CAD. The breasts are composed of fatty and fibroglandular tissue.No suspicious mass, architectural distortion or suspicious calcificationsare identified. IMPRESSION: : No mammographic evidence of malignancy. BIRADS 1-Negative; N. 5 year breast cancer risk assessment 0.4 % Lifetime breast cancer risk assessment 6.3 % Breast cancer risk category Low (<15%) Malika Epps CNM IMG XR PROCEDURES Final Resu lt * Pap smear (09/10/2021) 09/10/2021 Narrative HISTORICAL TESTING LAB RESULTING AGENCY - 09/25/2021 2:55 PM EDT [id number] THINPREP PAP, IMAGED: NEGATIVE FOR SQUAMOUS INTRAEPITHELIAL LESION AND MALIGNANCY . HUMPHREY HASSAN(ASCP) (CASE ELECTRONICALLY SIGNED 09 25 2021) RESULT OF APTIMA HIGH RISK HPV ASSAY: HIGH RISK HPV: NEGATIVE (SEROTYPES 16,18,31,33,35,39,45,51,52,56,58,59,66,68) COMPLETED ON 2021-09-12 ADEQUACY: SATISFACTORY ENDOCERVICAL/TRANSFORMATION ZONE COMPONENT ABSENT. SOURCE: THINPREP PAP HPV ANY DX: REFLEX 16 AND 18, CERVICAL, IMAGED CLINICAL INFORMATION: HPV ANY DIAGNOSIS. LMP 08/15/21, POSITIVE REMOTE HISTORY OF ABNORMAL. [Z01.419] us Malika Epps CNM LAB CYTOLOGY ORDERABLES Hallie l Result HISTORICAL TESTING LAB RESULTING AGENCY from Last 3 Months or Most Recently Relevant to Health Maintenance Insurance [facility] Member Subscriber Plan / Payer (Ef fective 2024-Present) Name:MANJU FLOREZ Relation to Subscriber:Self Name:Manju Florez Payer ID:[id number] Group ID:[id number] Type:Not on file Address: [address] [place] [phone] [facility] Member Subscriber Plan / Payer (Ef fective 2024-Present) Name:MANJU FLOREZ Relation to Subscriber:Self Name:Manju Florez Payer ID:[id number] Group ID:[id number] Type:Not on file Address: [address] [place] [phone] Advance Directives Documents on File Type Date Recorded Patient Brushing Machine Operator Expl anation Health Care Decision (hx) 05/12/2019 AD COREA DIRECTIVE Health Care Decision (hx) 05/12/2019 AD COREA DIRECTIVE Health Care Decision (hx) 05/12/2019 AD COREA DIRECTIVE Health Care Decision (hx) 05/12/2019 AD COREA DIRECTIVE Health Care Decision (hx) 05/12/2019 AD COREA DIRECTIVE Health Care Decision (hx) 05/12/2019 AD COREA DIRECTIVE Health Care Decision (hx) 05/12/2019 AD COREA DIRECTIVE Health Care Decision (hx) 05/12/2019 AD COREA DIRECTIVE Health Care Decision (hx) 05/12/2019 AD COREA DIRECTIVE Health Care Decision (hx) 05/12/2019 AD COREA DIRECTIVE Health Care Decision (hx) 05/12/2019 AD COREA DIRECTIVE Health Care Decision (hx) 05/12/2019 AD COREA DIRECTIVE Health Care Decision (hx) 05/12/2019 AD COREA DIRECTIVE Health Care Decision (hx) 05/12/2019 AD COREA DIRECTIVE Health Care Decision (hx) 05/12/2019 AD COREA DIRECTIVE Health Care Decision (hx) 05/12/2019 AD COREA DIRECTIVE Health Care Decision (hx) 05/12/2019 AD COREA DIRECTIVE Health Care Decision (hx) 05/12/2019 AD COREA DIRECTIVE Health Care Decision (hx) 05/12/2019 AD COREA DIRECTIVE Health Care Decision (hx) 05/12/2019 AD COREA DIRECTIVE Health Care Decision (hx) 05/12/2019 AD COREA DIRECTIVE Health Care Decision (hx) 05/12/2019 AD COREA DIRECTIVE Health Care Decision (hx) 05/12/2019 AD COREA DIRECTIVE Health Care Decision (hx) 05/12/2019 AD COREA DIRECTIVE Health Care Decision (hx) 05/12/2019 AD COREA DIRECTIVE Health Care Decision (hx) 05/12/2019 AD COREA DIRECTIVE Health Care Decision (hx) 05/12/2019 AD COREA DIRECTIVE Health Care Decision (hx) 05/12/2019 AD COREA DIRECTIVE Health Care Decision (hx) 05/12/2019 AD COREA DIRECTIVE Health Care Decision (hx) 05/12/2019 AD COREA DIRECTIVE Health Care Decision (hx) 05/12/2019 AD COREA DIRECTIVE Health Care Decision (hx) 05/12/2019 AD COREA DIRECTIVE Health Care Decision (hx) 05/12/2019 AD COREA DIRECTIVE Health Care Decision (hx) 05/12/2019 AD COREA DIRECTIVE Health Care Decision (hx) 05/12/2019 AD COREA DIRECTIVE Health Care Decision (hx) 05/12/2019 AD COREA DIRECTIVE Health Care Decision (hx) 05/12/2019 AD COREA DIRECTIVE Health Care Decision (hx) 05/12/2019 AD COREA DIRECTIVE Health Care Decision (hx) 05/12/2019 AD COREA DIRECTIVE Health Care Decision (hx) 05/12/2019 AD COREA DIRECTIVE Health Care Decision (hx) 05/12/2019 AD COREA DIRECTIVE Health Care Decision (hx) 05/12/2019 AD COREA DIRECTIVE Health Care Decision (hx) 05/12/2019 AD COREA DIRECTIVE Health Care Decision (hx) 05/12/2019 AD COREA DIRECTIVE Health Care Decision (hx) 05/12/2019 AD COREA DIRECTIVE * Full Code - Default (Latest Code Status on File) Date Activated Date Inactivated Comments 11/01/2024 9:42 AM 11/01/2024 7:19 PM This is orde r is used when code status has not been discussed with the patient, or code status is otherwise unknown/unconfirmed To update the patient's code status, place a code status order. Do not modify or discontinue any currently active code status orders. Healthcare Agents on File Name Relationship Healthcare Agent Relationshi p Communication Mayda Rodriguez Health Care Agent Care Teams Junior Project Manager Relationship Specialty Start Date End Date Physician, Pcp Unknown PCP - General 02/09/25
--- OUTSIDE RECORDS SUMMARY | 2025-03-01 12:11 | XMS_ITS | Encounter Summary ---
Author Organization [facility] Address [address] [place] [address] Phone Care Team Providers Care Cook Morning Name Role Phone Jose Avalos MD Primary Care Provider [phone] Encounter Details Date Type Department Care Team (Late Contact Info) Description 10/20/2023 Documentation Only [facility] [address] [place] [address] Denisha Philippe [address] [place] [phone] Social History Tobacco Use Types Packs/Day Years [...] Visit [facility] [address] [place] [address] Curtis Weir MD [address] [place] [address] [place] [address] documented as of this encounter Visit Diagnoses Not on filedocumented in this encounter Care Teams Cook Morning Relationship Specialty Start Date End Date Jose Avalos MD PCP - General Internal Medicine 01/28/23 documented as of this encounter
--- OUTSIDE RECORDS SUMMARY | 2025-03-01 12:11 | XMS_ITS | Encounter Summary ---
Author Organization [facility] Address [address] [place] [address] Phone Care Team Providers Care News Camera Operator Name Role Phone Jose Avalos MD Primary Care Provider [phone] Encounter Details Date Type Department Care Team (Late Contact Info) Description 10/20/2023 Documentation Only [facility] [address] [place] [address] Denisha Philippe [address] [place] [phone] Social History Tobacco Use Types Packs/Day Years [...] Visit [facility] [address] [place] [address] Curtis Weir MD [address] [place] [address] [place] [address] documented as of this encounter Visit Diagnoses Not on filedocumented in this encounter Care Teams News Camera Operator Relationship Specialty Start Date End Date Jose Avalos MD PCP - General Internal Medicine 01/28/23 documented as of this encounter
--- OUTSIDE RECORDS SUMMARY | 2025-03-01 12:11 | XMS_ITS | Encounter Summary ---
Author Organization [facility] Address [address] [place] [address] Phone Care Team Providers Care Commercial Trailer Truck Driver Name Role Phone Jose Avalos MD Primary Care Provider [phone] Encounter Details Date Type Department Care Team (Late Contact Info) Description 10/20/2023 Documentation Only [facility] [address] [place] [address] Denisha Philippe [address] [place] [phone] Social History Tobacco Use Types Packs/Day Years [...] [facility] [address] [place] [address] Curtis Weir MD [address] [place] [address] [place] [address] documented as of this encounter Visit Diagnoses Not on filedocumented in this encounter Care Teams Commercial Trailer Truck Driver Relationship Specialty Start Date End Date Jose Avalos MD PCP - General Internal Medicine 01/28/23 documented as of this encounter
--- OUTSIDE RECORDS SUMMARY | 2025-03-01 12:11 | XMS_ITS | Encounter Summary ---
Author Organization [facility] Address [address] [place] [address] Phone Care Team Providers Care Federal Appellate Law Clerk Name Role Phone Jose Avalos MD Primary Care Provider [phone] Encounter Details Date Type Department Care Team (Late st Contact Info) Description 08/20/2023 Documentation Only [facility] [address] [place] [address] Edy Craven [place] [address] [place] [phone] Social History Tobacco Use Types Packs/Day Years [...] Visit [facility] [address] [place] [address] Curtis Weir MD [address] [place] [address] [place] [address] documented as of this encounter Visit Diagnoses Not on filedocumented in this encounter Care Teams Federal Appellate Law Clerk Relationship Specialty Start Date End Date Jose Avalos MD PCP - General Internal Medicine 01/28/23 documented as of this encounter
--- OUTSIDE RECORDS SUMMARY | 2025-03-01 12:11 | XMS_ITS | Encounter Summary ---
Author Organization [facility] Address [address] [place] [address] Phone Care Team Providers Care Edger Technician Name Role Phone Jose Avalos MD Primary Care Provider [phone] Encounter Details Date Type Department Care Team (Late Contact Info) Description 10/23/2024 Documentation Only [facility] [address] [place] [address] Denisha Philippe [address] [place] [phone] Social History Tobacco Use Types Packs/Day Years [...] Visit [facility] [address] [place] [address] Curtis Weir MD [address] [place] [address] [place] [address] documented as of this encounter Visit Diagnoses Not on filedocumented in this encounter Care Teams Edger Technician Relationship Specialty Start Date End Date Jose Avalos MD PCP - General Internal Medicine 01/28/23 documented as of this encounter
--- OUTSIDE RECORDS SUMMARY | 2025-03-01 12:11 | XMS_ITS | Encounter Summary ---
Author Organization [facility] Address [address] [place] [address] Phone Care Team Providers Care Set Up Mechanic Crown Assembly Machine Name Role Phone Jose Avalos MD Primary Care Provider [phone] Encounter Details Date Type Department Care Team (Late Contact Info) Description 04/24/2024 Documentation Only [facility] [address] [place] [address] Denisha Philippe [address] [place] [phone] Social History Tobacco Use Types Packs/Day Years [...] Visit [facility] [address] [place] [address] Curtis Weir MD [address] [place] [address] [place] [address] documented as of this encounter Visit Diagnoses Not on filedocumented in this encounter Care Teams Set Up Mechanic Crown Assembly Machine Relationship Specialty Start Date End Date Jose Avalos MD PCP - General Internal Medicine 01/28/23 documented as of this encounter
--- OUTSIDE RECORDS SUMMARY | 2025-03-01 12:11 | XMS_ITS | Encounter Summary ---
Author Organization [facility] Address [address] [place] [address] Phone Care Team Providers Care Ui Application Developer Name Role Phone Jose Avalos MD Primary Care Provider [phone] Encounter Details Date Type Department Care Team (Late Contact Info) Description 10/20/2023 Documentation Only [facility] [address] [place] [address] Denisha Philippe [address] [place] [phone] Social History Tobacco Use Types Packs/Day Years [...] Visit [facility] [address] [place] [address] Curtis Weir MD [address] [place] [address] [place] [address] documented as of this encounter Visit Diagnoses Not on filedocumented in this encounter Care Teams Ui Application Developer Relationship Specialty Start Date End Date Jose Avalos MD PCP - General Internal Medicine 01/28/23 documented as of this encounter
--- OUTSIDE RECORDS SUMMARY | 2025-03-01 12:11 | XMS_ITS | Encounter Summary ---
Author Organization [facility] Address [address] [place] [address] Phone Care Team Providers Care Pier Runner Name Role Phone Jose Avalos MD Primary Care Provider Encounter Details Date Type Department Care Team (Late Contact Info) Description 11/17/2023 Documentation Only [facility] [address] [place] [address] Denisha Philippe [address] [place] [phone] Social History Tobacco Use Types Packs/Day Years [...] Visit [facility] [address] [place] [address] Curtis Weir MD [address] [place] [address] [place] [address] documented as of this encounter Visit Diagnoses Not on filedocumented in this encounter Care Teams Pier Runner Relationship Specialty Start Date End Date Jose Avalos MD PCP - General Internal Medicine 01/28/23 documented as of this encounter
--- OUTSIDE RECORDS SUMMARY | 2025-03-01 12:11 | XMS_ITS | Encounter Summary ---
Author Organization [facility] Address [address] [place] [address] Phone Care Team Providers Care Loan Administrator Name Role Phone Jose Avalos MD Primary Care Provider [phone] Encounter Details Date Type Department Care Team (Late Contact Info) Description 04/24/2024 Documentation Only [facility] [address] [place] [address] Denisha Philippe [address] [place] [phone] Social History Tobacco Use Types Packs/Day Years [...] [facility] [address] [place] [address] Curtis Weir MD [address] [place] [address] [place] [address] documented as of this encounter Visit Diagnoses Not on filedocumented in this encounter Care Teams Loan Administrator Relationship Specialty Start Date End Date Jose Avaols MD PCP - General Internal Medicine 01/28/23 documented as of this encounter
--- OUTSIDE RECORDS SUMMARY | 2025-03-01 12:11 | XMS_ITS | Encounter Summary ---
Author Organization [facility] Address [address] [place] [address] Phone Care Team Providers Care Primary Care Nurse Practitioner Name Role Phone Jose Avalos MD Primary Care Provider [phone] Encounter Details Date Type Department Care Team (Late st Contact Info) Description 01/28/2023 Documentation Only [facility] [address] [place] [address] Denisha Philippe [address] [place] [phone] Social History Tobacco Use Types Packs/Day Years Used Date Smoking Tobacco: Never Assessed Comments Unknown Sex and Gender Information Value Date Recorded Sex Assigned at Not on file Legal Sex Female 9:51 AM EDT Gender Identity Not on file Sexual Orientation Not on file documented as of this encounter Plan of Treatment Upcoming Encounters Date Type Department Care Team (Late st Contact Info) Description 04/23/2025 2:45 PM EST Office Visit [facility] [address] [place] [address] Curtis Weir MD [address] [place] [address] [place] [address] documented as of this encounter Visit Diagnoses Not on filedocumented in this encounter Care Teams Primary Care Nurse Practitioner Relationship Specialty Start Date End Date Jose Avalos MD PCP - General Internal Medicine 01/28/23 documented as of this encounter
--- OUTSIDE RECORDS SUMMARY | 2025-03-01 12:12 | XMS_ITS | Encounter Summary ---
Author Organization [facility] Address [address] [place] [address] Phone Care Team Providers Care Automatic Spreader Operator Name Role Phone Jose Avalos MD Primary Care Provider [phone] Encounter Details Date Type Department Care Team (Late Contact Info) Description 11/17/2023 Documentation Only [facility] [address] [place] [address] Denisha Philippe [address] [place] [phone] Social History Tobacco Use Types Packs/Day Years [...] Visit [facility] [address] [place] [address] Curtis Weir MD [address] [place] [address] [place] [address] documented as of this encounter Visit Diagnoses Not on filedocumented in this encounter Care Teams Automatic Spreader Operator Relationship Specialty Start Date End Date Jose Avalos MD PCP - General Internal Medicine 01/28/23 documented as of this encounter
--- OUTSIDE RECORDS SUMMARY | 2025-03-01 12:12 | XMS_ITS | Encounter Summary ---
Author Organization [facility] Address [address] [place] [address] Phone Care Team Providers Care Project Surveyor Name Role Phone Jose Avalos MD Primary Care Provider [phone] Encounter Details Date Type Department Care Team (Late Contact Info) Description 10/23/2024 Documentation Only [facility] [address] [place] [address] Denisha Philippe [address] [place] [phone] Social History Tobacco Use Types Packs/Day Years [...] Visit [facility] [address] [place] [address] Curtis Weir MD [address] [place] [address] [place] [address] documented as of this encounter Visit Diagnoses Not on filedocumented in this encounter Care Teams Project Surveyor Relationship Specialty Start Date End Date Jose Avalos MD PCP - General Internal Medicine 01/28/23 documented as of this encounter
--- OUTSIDE RECORDS SUMMARY | 2025-03-01 12:12 | XMS_ITS | Encounter Summary ---
Author Organization [facility] Address [address] [place] [address] Phone Care Team Providers Care Systems Management Consultant Name Role Phone Jose Avalos MD Primary Care Provider [phone] Encounter Details Date Type Department Care Team (Late Contact Info) Description 10/23/2024 Documentation Only [facility] [address] [place] [address] Denisha Philippe [address] [place] [phone] Social History Tobacco Use Types Packs/Day Years [...] [facility] [address] [place] [address] Curtis Weir MD [address] [place] [address] [place] [address] documented as of this encounter Visit Diagnoses Not on filedocumented in this encounter Care Teams Systems Management Consultant Relationship Specialty Start Date End Date Jose Avalos MD PCP - General Internal Medicine 01/28/23 documented as of this encounter
--- OUTSIDE RECORDS SUMMARY | 2025-03-01 12:12 | XMS_ITS | Encounter Summary ---
Author Organization [facility] Address [address] [place] [address] Care Team Providers Care Cafeteria Or Lunchroom Checker Name Role Phone Ricci Haro Primary Care Provid er Reason for Visit * Reason Comments Med Refill Encounter Details Date Type Department Care Team (Late st Contact Info) Description 03/01/2025 Refill [facility] [address] [place] [address] Sherif Bueno MD [address] [place] [address] Social History Tobacco Use Types Packs/Day Years Used Date Smoking Tobacco: Former Cigarettes Passive Smoke Exposure: Past Smokeless Tobacco: Never Alcohol Use Standard Drinks/Week Comments Not Currently 0 (1 standard drink = 0.6 oz pur e alcohol) Comments Unknown Sex and Gender Information Value Date Recorded Sex Assigned at Female 01/20/2024 5:06 PM EST Legal Sex Female 5:03 PM EST Gender Identity Female 11/15/2024 11:05 AM EDT Sexual Orientation Choose not to disclose 2024 11:06 AM EDT Sexual Orientation Other 11/15/2024 11 :06 AM EDT documented as of this encounter Plan of Treatment Upcoming Encounters Date Type Department Care Team (Late st Contact Info) Description 07/23/2025 4:15 PM EDT Follow-Up [facility] [address] [place] [address] Sherif Bueno MD [address] [place] [address] documented as of this encounter Visit Diagnoses Not on filedocumented in this encounter Care Teams Cafeteria Or Lunchroom Checker Relationship Specialty Start Date End Date Ricci Haro PA [address] [place] [address] PCP - General Family Medicine 08/23/24 documented as of this encounter
--- OUTSIDE RECORDS SUMMARY | 2025-03-01 12:12 | XMS_ITS | Encounter Summary ---
Author Organization [facility] Address [address] [place] [address] Phone Care Team Providers Care Cargo Broker Name Role Phone Jose Avalos MD Primary Care Provider [phone] Encounter Details Date Type Department Care Team (Late Contact Info) Description 10/23/2024 Documentation Only [facility] [address] [place] [address] Denisha Philippe [address] [place] [phone] Social History Tobacco Use Types Packs/Day Years [...] Visit [facility] [address] [place] [address] Curtis Weir MD [address] [place] [address] [place] [address] documented as of this encounter Visit Diagnoses Not on filedocumented in this encounter Care Teams Cargo Broker Relationship Specialty Start Date End Date Jose Avalos MD PCP - General Internal Medicine 01/28/23 documented as of this encounter
--- OUTSIDE RECORDS SUMMARY | 2025-03-01 12:12 | XMS_ITS | Clinical Summary ---
Author Organization [facility] Address [address] [place] [address] [place] [address] Phone Care Team Providers Care Float Nurse Name Role Phone Jose Avalos MD Primary Care Provider [phone] Allergies Active Allergy Reactions Criticality Noted Date Comments Aminobenzoate (Paba) Other (see comments),Nausea And Vomiting 09/02/2021 Aripiprazole 08/08/2020 Aspartame 02/01/2017 Headache and rash per pt Brexpiprazole Other (see comments),Nausea And Vomiting 12/04/2020 Bupropion 09/29/2019 Other reaction(s): headaches Celecoxib Other (see comments) 08/23/2014 Chlorpheniramine-Phenyle phrine Other (see comments) 08/31/2017 Other reaction(s): phenagran Clonazepam 09/10/2022 Other reaction(s): synopy Doxepin 08/08/2020 Ibuprofen 08/08/2020 Indomethacin 08/08/2020 she blacked out and paralysed for 7 hrs did n't know where she was Lactose 09/10/2022 Lamotrigine 08/08/2020 Lasmiditan 04/30/2023 [place] Other (see comments) 08/31/2017 Lurasidone 11/02/2022 Lurasidone Hcl Other (see comments),Nausea And Vomiting 09/02/2021 Metoclopramide Other (see comments) 08/23/2014 Metronidazole Other (see comments) 01/07/2017 Blurred vision Milk-Related Compounds 09/10/2022 Norethindrone Other (see comments) High 11/24/2017 Other reaction(s): OTHER Depression, emptyness feeling Oxycodone 08/23/2014 Other reaction(s): RASH Oxycodone-Acetaminophen Hives,Itching,Rash High 09/13 Prednisone 02/01/2017 I get every side effect that exists Promethazine Other (see comments) 07/08/2016 Sumatriptan Rash,Swelling Medium 08/23/2014 Other reaction(s): RASH, SWELLING Topiramate Other (see comments) 08/31/2017 Tramadol Other (see comments) 06/25/2017 Other reaction(s): OTHER Suicidal ideation Trazodone 12/28/2016 Other reaction(s): causes long QT to drop, OTHER Chest pain Chest pain Vortioxetine 07/15/2017 Headache, insomnia headache Zolpidem Rash Low 02/01/2017 Other reaction(s): loses consciousness, poor memory Headaches and rash Medications albuterol HFA (PROVENTIL HFA;VENTOLIN HFA) 108 (90 Base) MCG/ACT inhaler Inhale 2 puffs 1 Active Butalbital-APA P-Caffeine 50-300-40 MG capsule TAKE 1 TO 2 CAPSULES BY MOUTH EVERY 4 HOURS NEEDED. NOT TO EXCEED 6 CAPSULES PER 24 HOURS FOR 30 DAYS 3 Active cyclobenzaprin e (FLEXERIL) 5 MG tablet Take 5 mg by mouth 3 Active divalproex (DEPAKOTE) 500 MG EC tablet 3 Active DULoxetine (CYMBALTA) [address] capsule 3 Active HYDROcodone-ac etaminophen (NORCO) 5-325 MG per tablet Take 1 tablet by mouth every 6 (six) hours if needed Active ketorolac (TORADOL) 10 MG tablet 3 Active linaCLOtide (Linzess) 145 MCG capsule Take 145 mcg by mouth 3 Active LORazepam (ATIVAN) 1 MG tablet 3 Active Multiple Vitamins-Dunn als (Bariatric Multivitamins/ Iron) capsule 0 Refills, Maintenance, 12/13/19 14:18:00 EDT 0 Active Plecanatide (Trulance) 3 MG tablet Take 1 tablet by mouth 1 (one) time each day 2 Active topiramate (TOPAMAX) 50 MG tablet 3 Active amLODIPine (NORVASC) 10 MG tablet Take 1 tablet (10 mg total) by mouth 1 (one) time each day 30 tablet 11 3 023 Discontinued Active Problems Problem Noted Date Diagnosed Date Hypotension Prediabetes Vitamin D deficiency Iron deficiency Immunizations Immunization Administration Dates Next Due Hepatitis B 12/10/2017 Influenza (IM) Preservative Free 12/05/2017 Influenza LAIV (Nasal) 03/27/2009 Influenza, MDCK, PF, Quadrivalent 12/31/2021, Influenza, Unspecified 11/23/2019,2018,12/15/2012, 0,12/31/2008,12/30/2007 Measles 12/10/2017 Mumps 12/10/2017 PPD Test 02/20/2019, 9,01/19/2018, 8 Pfizer SARS-COV-2 07/01/2020,06/09/2020 Rubella 12/10/2017 Td, Unspecified 10/14/2003 Tdap 12/05/2017 Varicella 12/10/2017 Family History Medical History Relation Comments Diabetes Father Heart disease Father Hypertension Father Heart attack Maternal Grandfather Other Maternal Grandmother hypoglycemi a Cirrhosis Mother Diabetes Mother Hypertension Mother Kidney disease Mother Relation Status Comments Father Maternal Grandfather Maternal Grandmother Mother Social History Tobacco Use Types Packs/Day Years Used Date Smoking Tobacco: Never Smokeless Tobacco: Never Comments Unknown Sex and Gender Information Value Date Recorded Sex Assigned at Not on file Legal Sex Female 9:51 AM EDT Gender Identity Not on file Sexual Orientation Not on file Last Filed Vital Signs Vital Sign Reading Time Taken Comments Blood Pressure 124/81 04/24/2024 2:41 PM EST Pulse 69 04/24/2024 2:41 PM EST Temperature - - Respiratory Rate - - Oxygen Saturation - - Inhaled Oxygen Concentration - - Weight 54.9 kg (121 lb) 10/22/2023 2:40 PM EDT Height - - Body Mass Index - - Plan of Treatment Upcoming Encounters Date Type Department Care Team (Late st Contact Info) Description 04/23/2025 2:45 PM EST Office Visit [facility], [address] [place] [phone] Curtis Weir MD [address] [facility] [place] [address] Health Maintenance Due Date Last Done Comments Pneumococcal Vaccine: Peds ( 0 to 5 Years) and At-Risk Patients (6 to 49 Years) (1 of 2 - PCV) 06/03/1999 Hepatitis B Vaccine (2 of 3 - 3-dose series) 01/07/2018 12/10/2017, 1980 Influenza Vaccine (#1) 2024 , 12/31/2021, 12/04/2020, Additional history exists Insurance Medicaid [place] [employer] Dual SNP ([id number]) Care Teams Float Nurse Relationship Specialty Start Date End Date Jose Avalos MD PCP - General Internal Medicine 01/28/23
--- OUTSIDE RECORDS SUMMARY | 2025-03-01 12:12 | XMS_ITS | Encounter Summary ---
Author Organization [facility] Address [address] [place] [address] Phone Care Team Providers Care Sawmill Hand Name Role Phone Jose Avalos MD Primary Care Provider [phone] Encounter Details Date Type Department Care Team (Late st Contact Info) Description 10/25/2023 Documentation Only [facility] [address] [place] [address] Edy Craven PA [address] [place] [phone] Social History Tobacco Use Types Packs/Day Years [...] Visit [facility] [address] [place] [address] Curtis Weir MD [address] [place] [address] [place] [address] documented as of this encounter Visit Diagnoses Not on filedocumented in this encounter Care Teams Sawmill Hand Relationship Specialty Start Date End Date Jose Avalos MD PCP - General Internal Medicine 01/28/23 documented as of this encounter
--- OUTSIDE RECORDS SUMMARY | 2025-03-01 12:12 | XMS_ITS | Clinical Summary ---
Author Organization [facility] Prior to 08/12/[address] [place] [address] Care Team Providers Care Clinical Academic Allergist Name Role Phone Jose Avalos MD Primary Care Provider [phone] Allergies Active Allergy Reactions Criticality Noted Date Comments Aripiprazole 08/08/2020 Aminobenzoate 11/02/2022 Celecoxib 08/08/2020 Doxepin 08/08/2020 Ibuprofen 08/08/2020 Sumatriptan 08/08/2020 Indomethacin 08/08/2020 Lamotrigine 08/08/2020 Lurasidone 11/02/2022 Veazie 08/08/2020 Metronidazole 08/08/2020 Norethindrone 08/08/2020 Oxycodone 08/08/2020 Oxycodone-Acetaminophen 08/08/2020 Promethazine 08/08/2020 Prednisone 08/08/2020 Metoclopramide 08/08/2020 Lasmiditan 04/30/2023 Topiramate 08/08/2020 Tramadol 08/08/2020 Trazodone 08/08/2020 Chest pain Vortioxetine 08/08/2020 Bupropion 08/08/2020 Zolpidem Rash Low 08/08/2020 Medications Medication Sig Dispensed Refills Start Date End Date Status Multiple Vitamin tablet Take 1 tablet by mouth daily. 0 Active albuterol 108 (90 Base) MCG/ACT inhaler Inhale 2 puffs into the lungs every 4 (four) hours as needed for wheezing. 0 Active Diclofenac Sodium 1 % GEL Apply 1 drop topically 4 (four) times a day. 0 Active lansoprazole (lansoprazole) 30 MG capsule Take 1 capsule (30 mg total) by mouth daily. 0 Active butalbital-acetamin ophen-caffeine 50-325-40 MG per tablet Take 1 tablet by mouth 2 (two) times a day. 0 Active polyethylene glycol (MIRALAX) 17 g packet Take 17 g by mouth 2 (two) times a day. 0 Active DULoxetine (CYMBALTA) DR capsule 60 mg Take 1 capsule (60 mg total) by mouth daily. 0 Active Plecanatide 3 MG TABS Take 1 tablet by mouth daily. 0 Active hydrocortisone (ANUSOL-HC) 2.5 % CREA perianal cream Place around the anus 2 (two) times a day. 0 Active DULoxetine (CYMBALTA) DR capsule 20 mg Take 1 capsule (20 mg total) by mouth daily. 0 Active pregabalin (LYRICA) capsule 50 mg Take 1 capsule (50 mg total) by mouth 3 (three) times a day. 0 Active Lifitegrast (Xiidra) 5 % SOLN Apply to eye. 0 Acti ve Calcium Carbonate (CALCIUM 600 PO) Take by mouth. 0 Acti ve meloxicam (MOBIC) 15 MG tablet Take 1 tablet (15 mg total) by mouth daily. 0 11/23/2023 Active rimegepant (Nurtec) 75 MG TBDP ODT Take 1 tablet (75 mg total) by mouth every other day. 15 tablet 3 11/30/2023 Active Ubrogepant (Ubrelvy) 100 MG TABS Take 100 mg by mouth 2 (two) times a day as needed. 16 tablet 3 11/30/2023 Active methylPREDNISolone (MEDROL DOSEPACK) 4 MG tablet follow package directions 21 tablet 0 12/23/2023 Active Active Problems Problem Noted Date Diagnosed Date Iron deficiency anemia mereon lobo to inadequate dietary iron intake 11/06/2022 COY on CPAP 08/08/2020 Overview: [facility] Home Sleep Apnea [...] test. Intestinal malabsorption following gastrectomy 0 07/25/2019 Prediabetes 03/01/2019 Prolonged Q-T interval on ECG 12/28/2016 Generalized anxiety disorder 09/24/2016 Fatty liver disease, nonalcoholic 07/08/2016 Gastroparesis 07/08/2016 Overview: Last Assessment & Plan: Unsure if this is an accurate dx given equivocal gastric emptying study results. Has had extensive GI work up at OSHs w/ inconclusive results. Will not pursue further testing at this time - gave pt samples of peppermint oil so help w/ GI sxs - encouraged to consider Ensure to meet caloric needs - CTM Insomnia 08/23/2014 Major depression 08/23/2014 Migraines 08/23/2014 PCOS (polycystic ovarian syndrome) 08/23/2014 Resolved Problems Problem Noted Date Diagnosed Date Resolved Date Class 1 obesity due to exces s calories with serious comorbidity and body mass index (BMI) of 34.0 to 34.9 in adult 10/04/2018 08/12/2020 Family History Medical History Relation Name Comments Diabetes Brother Heart attack Brother Diabetes Father Heart disease Father Hyperlipidemia Father Hypertension Father Obesity Father Diabetes Mother Heart disease Mother Hyperlipidemia Mother Hypertension Mother Relation Name Status Comments Brother Father Alive Mother Alive Social History Tobacco Use Types Packs/Day Years Used Date Smoking Tobacco: Never Smokeless Tobacco: Never Tobacco Cessation:Counseling Given: Not Answered Alcohol Use Standard Drinks/Week Comments Yes 0 (1 standard drink = 0.6 oz pur e alcohol) Occasional alcohol Sex and Gender Information Value Date Recorded Sex Assigned at Female 11/09/2022 2:55 PM EDT Gender Identity Not on file Sexual Orientation Not on file Job Start Date Occupation Industry Not on file Not on file Not on file Last Filed Vital Signs Vital Sign Reading Time Taken Comments Blood Pressure 138/85 12/23/2023 1:24 PM EDT Pulse 61 12/23/2023 1:24 PM EDT Temperature 36 C (96.8 F) 12/23/2023 1:24 PM EDT Respiratory Rate 18 11/19/2022 8:25 AM EDT Oxygen Saturation 98% 11/30/2023 9:21 AM EDT Inhaled Oxygen Concentration - - Weight 56.7 kg (125 lb) 12/23/2023 1:24 PM EDT Height 157.5 cm (5' 2 ) 12/23/2023 1:24 PM EDT Body Mass Index 22.86 12/23/2023 1:24 PM EDT Plan of Treatment Health Maintenance Due Date Last Done Comments Hepatitis C Screening 1980 Pneumococcal Vaccine (1 of 2 - PCV) 1986 Depression Screening 1992 BMI Counseling 1998 Preventative Health Evaluation 1998 Cervical Cancer Screening (Pap Smear) 2001 Hepatitis B Vaccines (3 of 3 - 3-dose series) 02/04/2018 12/10/2017, 1980 COVID-19 Vaccine ( - season) 2024 07/01/2020, 06/09/2020 Influenza Vaccine (#1) 2024 , 12/04/2020, 11/23/2019, Additional history exists DTap / Tdap / Td (2 - Td or Tdap) 12/06/2027 12/05/2017, 10/14/2003 RSV Ped < 20 months Aged Out No longe r eligible based on patient's age to complete this topic Care Teams Clinical Academic Allergist Relationship Specialty Start Date End Date Jose Avaols MD PCP - General Internal Medicine 07/25/20
--- OUTSIDE RECORDS SUMMARY | 2025-03-01 12:12 | XMS_ITS | Encounter Summary ---
Author Organization [facility] Address [address] [place] [address] Care Team Providers Care Dog Warden Name Role Phone Ricci Haro Primary Care Provid er Encounter Details Date Type Department Care Team (Late st Contact Info) Description 02/22/2025 myChart Message [facility] [address] [place] [address] Sherif Bueno MD [address] [place] [address] Clearance letter numerology to drive Social History Tobacco Use Types Packs/Day Years [...] Info) Description 07/23/2025 4:15 PM EDT Follow-Up [facility] [address] [place] [address] Sherif Bueno MD [address] [place] [address] documented as of this encounter Visit Diagnoses Not on filedocumented in this encounter Care Teams Dog Warden Relationship Specialty Start Date End Date Ricci Haro PA [address] [place] [address] PCP - General Family Medicine 08/23/24 documented as of this encounter
--- OUTSIDE RECORDS SUMMARY | 2025-03-01 12:12 | XMS_ITS | Encounter Summary ---
Author Organization [facility] Address [address] [place] [address] Phone Care Team Providers Care Spd Manager Name Role Phone Jose Avalos MD Primary Care Provider [phone] Encounter Details Date Type Department Care Team (Late st Contact Info) Description 09/09/2022 Documentation Only [facility] [address] [place] [address] Valentin David [address] [place] [address] Social History Tobacco Use Types Packs/Day Years [...] Visit [facility] [address] [place] [address] Curtis Weir MD [address] [place] [address] [place] [address] documented as of this encounter Visit Diagnoses Not on filedocumented in this encounter Care Teams Spd Manager Relationship Specialty Start Date End Date Jose Avalos MD PCP - General Internal Medicine 01/28/23 documented as of this encounter
--- OUTSIDE RECORDS SUMMARY | 2025-03-01 12:12 | XMS_ITS | Encounter Summary ---
Author Organization [facility] Address [address] [place] [address] Phone Care Team Providers Care Coal Deliverer Name Role Phone Jose Avalos MD Primary Care Provider Encounter Details Date Type Department Care Team (Late Contact Info) Description 10/23/2024 Documentation Only [facility] [address] [place] [address] Denisha Philippe [address] [place] [phone] Social History Tobacco Use Types Packs/Day Years [...] Visit [facility] [address] [place] [address] Curtis Weir MD [address] [place] [address] [place] [address] documented as of this encounter Visit Diagnoses Not on filedocumented in this encounter Care Teams Coal Deliverer Relationship Specialty Start Date End Date Jose Avalos MD PCP - General Internal Medicine 01/28/23 documented as of this encounter
--- OUTSIDE RECORDS SUMMARY | 2025-03-01 12:12 | XMS_ITS | Clinical Summary ---
Author Organization [facility] Address [address] [place] [address] Care Team Providers Care Lease Out Worker Name Role Phone Ricci Haro Primary Care Provid er Allergies Active Allergy Reactions Criticality Noted Date Comments Aminobenzoic Acid Dizziness,Nausea And Vomiting,Other (see comments) 09/02/2021 Aripiprazole Unknown High 08/08/2020 Other Reaction(s): dizziness/headache Aspartame Unknown 02/01/2017 Headache and rash per pt Brexpiprazole Dizziness,Nausea And Vomiting,Other (see comments) 12/04/2020 Bupropion Headache 09/29/2019 Other reaction(s): headaches Cariprazine Headache 11/09/2022 Celecoxib Other (see comments),Unknown High 08/23/2014 Chlorpheniramine-Phenyl ephrine Other (see comments),Unknown 08/31/2017 Other reaction(s): phenagran Clonazepam Syncope High 09/10/2022 Other reaction(s): synopy Divalproex Unknown 08/22/2024 Doxepin Unknown 08/08/2020 Other Reaction(s): depression,angry Ibuprofen Unknown 08/08/2020 Indomethacin Unknown 08/08/2020 she blacked out and paralysed for 7 hrs did n't know where she was Lactose Unknown 09/10/2022 Lamotrigine Unknown 08/08/2020 Lasmiditan Unknown 04/30/2023 blackout, halluciantions, violent behavior [place]is Other (see comments) High 08/31/2017 Other Reaction(s): suicidal thoughts Lurasidone Dizziness,Nausea And Vomiting,Other (see comments) 09/02/2021 Other Reaction(s): headaches Metoclopramide Other (see comments) 08/23/2014 Metronidazole Headache,Other (see comments) 01/07/2017 Blurred vision Blurred vision Metronidazole Benzoate Unknown 08/22/2024 Milk Containing Products (Dairy) Unknown 09/10/2022 Norethindrone Headache,Other (see comments) High 11/24/2017 Other reaction(s): OTHER Depression, emptyness feeling Depression, emptyness feeling Norethindrone (Contraceptive) Unknown 04/25/2024 Oxcarbazepine Behavioral Problems 11/17/2024 Worsened migraines, made her very angry, fidgety and more depressed. Oxycodone Rash 08/23/2014 Other reaction(s): RASH Oxycodone-Acetaminophen Drug rash with eosinophilia and systematic symptoms,Hives,Itchin g,Rash High 10/05/2014 Other Reaction(s): Hives/Urticaria Phenergan Dm Other (see comments) 07/08/2016 Prednisone Unknown 02/01/2017 I get every side effect that exists Promethazine Other (see comments) 07/08/2016 Other Reaction(s): jumpy Sumatriptan Rash,Swelling High 08/23/2014 Other reaction(s): RASH, SWELLING Topiramate Other (see comments) 08/31/2017 Tramadol Other (see comments) High 06/25/2017 Other reaction(s): OTHER Suicidal ideation Other Reaction(s): Suicidal thoughts Suicidal ideation Suicidal ideation Trazodone Unknown,Headache,Oth e r (see comments) Low 12/28/2016 Chest pain Other reaction(s): causes long QT to drop, OTHER Chest pain Chest pain Other Reaction(s): OTHER Chest pain Vilazodone Unknown 04/25/2024 Vortioxetine Unknown High 07/15/2017 Headache, insomnia headache Other Reaction(s): headache insomnia Headache, insomnia Headache, insomnia headache Zolpidem Rash,Memory Disturbance Low 02/01/2017 Other reaction(s): loses consciousness, poor memory Headaches and rash Other Reaction(s): sleepwalk Headaches and rash Headaches and rash Medications albuterol (PROAIR HFA,VENTOLIN HFA) 90 mcg inhaler Inhale 1 puff by mouth every 6 hours as needed for wheezing or shortness of breath. 10/19/19 24 Active lansoprazole (PREVACID) 30 mg capsule Take 30 mg by mouth once a day. Active desvenlafaxine succinate (PRISTIQ) 100 mg 24 hr tablet Take 100 mg by mouth once a day. 08/16/19 25 Active hydrocortisone (ANUSOL-HC) 2.5% rectal cream Insert into the rectum 2 times a day. Active diclofenac (VOLTAREN) 1% gel Apply topically to the affected area 4 times a day. 08/04/19 25 Active polyethylene glycol 3350 (MIRALAX) 17 gram packet Take 17 g by mouth daily as needed for constipation. Active pregabalin (LYRICA) 300 mg capsule Take 300 mg by mouth 2 times a day. Active topiramate (TOPAMAX) 100 mg tablet Take 100 mg by mouth 2 times a day. 04/19/19 25 Active Xiidra 5 % dropperette SMARTSI Drop(s) In Eye(s) Twice Daily Active OXcarbazepine (TRILEPTAL) 300 mg tablet Take 300 mg by mouth 2 times a day. Active OXcarbazepine (TRILEPTAL) 600 mg tablet Take 600 mg by mouth at bed time. Active LORazepam (ATIVAN) 1 mg tablet Take 1 mg by mouth daily as needed for anxiety or insomnia. Active diclofenac (VOLTAREN) 75 mg EC tablet Take 75 mg by mouth 2 times a day. Active multivitamin (Multiple Vitamins) tablet Take 1 tablet by mouth once a day. Active tiZANidine (ZANAFLEX) 4 mg tablet Take 4 mg by mouth 3 times a day. Active calcium carbonate (OS-ROLY) 600 mg calcium (1,500 mg) tablet Take 600 mg by mouth once a day. Active Salonpas, lidocaine, 4 % adhesive patch,medicated APPLY 1 PATCH TO AFFECTED AREA FOR UP TO 12 HOURS, THEN OFF FOR 12 HOURS 10/11/19 25 Active venlafaxine XR (EFFEXOR XR) 75 mg capsule SMARTSI Capsule(s) By Mouth Every Morning 09/20/19 25 Active lumateperone (Caplyta) 42 mg capsule Take 42 mg by mouth once a day. Active fremanezumab-vf rm (Ajovy Autoinjector) 225 mg/1.5 mL auto-injector Inject 1.5 mL (225 mg total) under the skin every 28 days. 1.5 mL 5 03/01/20 25 Active ubrogepant (Ubrelvy) 100 mg tablet tablet Take 1 tablet (100 mg) daily as needed for migraine. If in 2 hours migraine persists can take additional 1 tablet (100 mg). Do not exceed 2 tablets in 24 hours). 30 tablet 5 03/01/20 25 Active ibuprofen (MOTRIN) 600 mg tablet 11/02/19 25 025 Discontinued Active Problems No known active problems Encounters Date Type Department Care Team Description 03/01/2025 Refill [facility] [address] [place] [id number] Sherif Bueno MD 02/22/2025 2:20 PM EST Office Visit [facility] [address] [place] [address] Farm Agent: Jack Cowan MD Fibromyalgia (Primary Dx); Chronic musculoskeletal pain; Reactive depression 02/22/2025 myChart Message [facility] [address] [place] [phone] Sherif Bueno MD Clearance letter numerology to drive 02/20/2025 Telephone [facility] [address] [place] [id number] Paige Pleitez CCMA PAC Clinical Questions 01/25/2025 9:16 AM EST - 01/25/2025 11:59 PM EST Hospital Encounter [facility] Cardiac Ultrasound [address] [place] [phone] Pre-syncope Discharge Disposition: Home or Self Care () 01/03/2025 8:40 AM EDT - 01/03/2025 11:59 PM EDT Hospital Encounter [facility] Heart Station [address] [place] [phone] Pre-syncope Discharge Disposition: Home or Self Care () 12/28/2024 3:00 PM EDT Office Visit [facility] 4th floor Cardiology Medicine [address] [place] [address] Farm Agent: Deven Kahn MD Pre-syncope (Primary Dx); Palpitations 12/04/2024 Results Follow-Up [facility] [address] [place] [address] Sherif Bueno MD 12/01/2024 10:00 AM EDT - 12/01/2024 11:59 PM EDT Hospital Encounter [facility] Neurodiagnostics [address] [place] [address] Cady Perez Syncope, unspecified syncope type Discharge Disposition: Home or Self Care (01) from Last 3 Months Family History Relation Name Status Comments Father Alive Mother Social History Tobacco Use Types Packs/Day [...] Orientation Other 11/15/2024 11 :06 AM EDT Last Filed Vital Signs Vital Sign Reading Time Taken Comments Blood Pressure 113/76 02/22/2025 2:28 PM EST Pulse 77 02/22/2025 2:28 PM EST Temperature 36.8 C (98.3 F) 02/22/2025 2:28 PM EST Respiratory Rate 18 12/28/2024 3:04 PM EDT Oxygen Saturation 98% 12/28/2024 3:04 PM EDT Inhaled Oxygen Concentration - - Weight 59.9 kg (132 lb) 02/22/2025 2:28 PM EST Height 157.5 cm (5' 2 ) 12/28/2024 3:04 PM EDT Body Mass Index 24.14 12/28/2024 3:04 PM EDT Plan of Treatment Upcoming Encounters Date Type Department Care Team (Late st Contact Info) Description 07/23/2025 4:15 PM EDT Follow-Up [facility] Neurology [facility] [address] [place] [phone] Sherif Bueno MD [address] [place] [address] [place] [address] Health Maintenance Due Date Last Done Comments HIV Screening 1980 HPV and Pap Smear 1980 Hepatitis C Screening 1980 Pneumococcal Vaccine: Pediat farheen (0-5 Years) and At-Risk Patients (6-50 Years) (1 of 2 - PCV) 06/03/1999 Varicella Vaccines (2 of 2 - 13+ 2-dose series) 01/07/2018 12/10/2017 Hepatitis B Vaccines (3 of 3 - 3-dose series) 02/04/2018 12/10/2017, 1980 Mammogram 2020 Alcohol/Substance Use Screening 03/15/2024 Depression Screening and Follow-Up 03/15/2024 Social Drivers of Health Danielle ual Screening 03/15/2024 Cervical Cancer Screening 09/10/2024 Pap Smear 09/10/2024 09/10/2021 COVID-19 Vaccine (4 - 2024-2 6 season) 2024 07/21/2021, 07/01/2020, 06/09/2020 DTaP,Tdap,and Td Vaccines (2 - Td or Tdap) 12/06/2027 12/05/2017, 10/14/2003 Influenza Vaccine Completed 11/21/2024, , 11/30/2022, Additional history exists Diabetes Screening Discontinued 02/10/2025, 1 03/23/2024, 11/26/2024, Additional history exists Procedures * Due to [place] state law, this organization might not be sharing negative HIV tests. Procedure Name Priority Date/Time Associated Diagnosis Comments ECHOCARDIOGRAM EXERCISE STRESS TEST W/ LIMITED DOPPLER AND COLOR Routine 01/25/2025 10:40 AM EST Pre-syncope CARDIAC EVENT MONITOR 14 DAY MAIL OUT Routine 01/18/2025 11:25 AM EST Pre-syncope ECG 12-LEAD Routine 12/28/2024 3:08 PM EDT Palpitations EEG Routine 12/01/2024 11:30 AM EDT Syncope, unspecified syncope type from Last 3 Months Results * Due to [place] state law, this organization might not be sharing negative HIV tests. * ECHOCARDIOGRAM EXERCISE STRESS TEST W/ LIMITED DOPPLER AND COLOR (01/25/2025 10:40 AM EST) PROTOCOL NAME [facility] Max Work Load (METS*10) 70 [facility] Peak BP Systolic 143 mmHg [facility] Peak BP Diastolic 79 mmHg [facility] Baseline HR 65 BPM [facility] Baseline BP 143/79 mmHg [facility] Max HR 109 BPM [facility] Max Age Predicted HR 176 BPM [facility] Percent of predicted max HR 61 % [facility] TARGET HR FORMULA (220 - Age)*100% [facility] Estimated workload 1.0 METS [facility] Post peak HR 108 BPM [facility] Percent HR 51 % [facility] Exercise duration (min) 5 [facility] Exercise duration (sec) 5 [facility] Post peak BP 143/79 mmHg [facility] Target HR 150 bpm [facility] Stress peak HR 109 bpm [facility] Anatomical Region Laterality Modality Heart Other 01/25/2025 11:4 6 AM EST 01/25/2025 11:15 AM EST Narrative 01/25/2025 1:23 PM EST Patient exercised 5:05 minutes of the [facility] protocol reaching 61% age-predicted maximum heart rate and stopping due to fatigue. No ST changes at the heart rate and workload achieved. Nondiagnostic stress echocardiogram due to inability to reach at least 85% age-predicted maximum heart rate. LV function at rest and stress were similar. Estimated LVEF 65%. Left Ventricle The left ventricle size is normal. Normal left ventricular wall motion. Left ventricular ejection fraction is in the normal range with visually estimated LVEF 65%. Right Ventricle Right ventricle size is normal. Normal right ventricular systolic function. Mitral Valve Normal mitral valve without significant regurgitation or stenosis. Tricuspid Valve Normal tricuspid valve without significant regurgitation or stenosis. Aortic Valve There is a trileaflet aortic valve. No aortic stenosis. Ascending Aorta The ascending aorta is normal. Pericardium No pericardial effusion. Pulmonary Artery TR jet was inadequate to estimate pulmonary artery pressure. Study Details Study quality was adequate. A limited echocardiogram was performed with 2D, color flow Doppler and spectral Doppler. The apical and parasternal views were obtained.Left ventricle image acquisition obtained within 90 seconds post- stress. Stress Findings The patient exercised according to the [facility] protocol for 5 5, achieving a work level of Max. METS: 1.0Duke Treadmill Score indicates low risk. . The patient's exercise capacity was fair for their age and sex, reaching stage 2 of the protocol. The patient experienced no angina during the test. Dr. Ankur Black was immediately available for assistance and direction during the test.The patient reported no symptoms during the stress test. The test was stopped because the patient experienced fatigue. The target heart rate was 150 bpm. The resting heart rate of 65 BPM miri to a maximal heart rate of 108 BPM. The resting blood pressure of 143/79 mmHg miri to a maximum blood pressure of 143/79 mmHg. The blood pressure was hypertensive at baseline and with a blunted response to stress the heart rate demonstrated a normal response to stress. The patient's heart rate recovery was normal. ECG Resting ECG: Normal sinus rhythm. Stress ECG: No ST-segment deviation. No arrhythmias. The ECG was not diagnostic due to failure to achieve 85% maximal predicted target heart rate. Prior Study There is no prior study available for comparison. Echo Post Stress Left ventricle at peak stress: Size is normal. Systolic function is normal and unchanged from rest. Wall motion is normal. EF by visual approximation is 65%. Wall Scoring Resting Score Index: 1.00 The left ventricular wall motion is normal. Wall Scoring Post Stress Score Index: 1.00 The left ventricular wall motion is normal. us Deven Maya MD CV ECHO PROCEDURES Final Resul t * CARDIAC EVENT MONITOR 14 DAY MAIL OUT (01/18/2025 11:25 AM EST) Anatomical Region Laterality Modality Monitor Room Narrative 02/20/2025 2:41 PM EST This is a Cardiac event monitor - 14 day. The study period is 01/03/2025 to 01/17/2025. Findings: There were a total of 6 patient triggered activations for review. These activations correlated with sinus rhythm with a heart rate of 60 to 91 bpm. There were no symptoms reported by the patient during the monitoring duration. Conclusions: No significant arrhythmias. us Deven Maya MD CV CARDIAC SERVICES PROCEDURES Final Result * ECG 12 lead (12/28/2024 3:08 PM EDT) Ventricular Rate EKG 53 BPM MUSE EKG Atrial Rate 53 BPM MUSE EKG AZ Interval 130 ms MUSE EKG QRS Interval 84 ms MUSE EKG QT Interval 510 ms MUSE EKG QTC Interval 478 ms MUSE EKG P [place] -4 degrees MUSE EKG R [place] 16 degrees MUSE EKG T Wave [place] 34 degrees MUSE EKG 12/28/2024 3:08 PM EDT 12/29/2024 5:20 PM EDT Impressions MUSE EKG - 12/29/2024 5:20 PM EDT SINUS BRADYCARDIA NO PREVIOUS ECGS AVAILABLE Confirmed by Brent Au ([id number]) on 12/29/2024 5:20:07 PM Narrative Procedure Note Brent Au II, MD - 12/29/2024 IMPRESSION: SINUS BRADYCARDIA NO PREVIOUS ECGS AVAILABLE Confirmed by Brent Au ([id number]) on 12/29/2024 5:20:07 PM Deven Maya MD ECG ORDERABLES Final Result MUSE EKG * EEG/Electroencephalography (12/01/2024 11:30 AM EDT) Narrative [facility] - 12/01/2024 10:30 AM EDT Diana Karimi MD 12/01/2024 1:34 PM [facility] ROUTINE VIDEO-EEG REPORT Patient: Manju Erazo : 1980 Referring Physician: Nirav Rodney MD Start Date/Time: 12/01/2024, 10:54 Stop Date/Time: 12/01/2024, 11:30 Total Study Time: 36 minutes Object: 44 y.o. female who presents clinical suspicion of epilepsy or seizure Neuroactive Medications: venlafaxine, topiramate Recording Conditions: 21 electrode EEG (International 10-20 system) with video and single channel EKG recording on [employer] equipment Activation procedures: intermittent photic stimulation, hyperventilation EEG Background: Symmetry: symmetric Voltage: normal Anterior-posterior (AP) gradient: present Predominant background frequency: theta, alpha, beta Posterior dominant ( alpha ) rhythm: present: 8.5 Hz Continuity: continuous Reactivity: reactive (PDR attenuates with eye opening) State changes: present with normal stage N2 sleep transients (spindles and K complexes) Breach effect: absent Other: Three minutes of hyperventilation resulted in intermittent mild background slowing. Intermittent photic stimulation did not result in any photic driving. Sporadic Epileptiform Discharges: none Rhythmic and Periodic Patterns (RPPs): none Brief Potentially Ictal Rhythmic Discharges (BIRDs): none Electrographic and Electroclinical Seizures: none Marked Events and Other Clinical Events: none Single Channel Software Implementation Project Manager: Rhythm: regular Rate (typical): ~50 bpm Other: bradycardia EEG Classification: Normal Summary of Findings: This awake, drowsy and sleep EEG is within the normal limits. There were no areas of focal slowing and no epileptiform discharges were captured. Interpretation: A normal EEG does not rule out diagnosis of epilepsy. Diana Karimi MD Staff Epileptologist 12/01/2024 1:32 PM Nirav Rodney MD NEUROLOGY ORDERABLES Final Resu lt Performing Organization Address [facility] Co de Phone Number [facility] EEG from Last 3 Months Insurance [facility] [place] PURVIS [id number] Care Teams Lease Out Worker Relationship Specialty Start Date End Date Ricci Haro PA [address] [place] [address] PCP - General Family Medicine 08/23/24
--- OUTSIDE RECORDS SUMMARY | 2025-03-01 12:12 | XMS_ITS | Encounter Summary ---
Author Organization [facility] Address [address] [place] [address] Phone Care Team Providers Care Customer Service Attendant Name Role Phone Jose Avalos MD Primary Care Provider [phone] Encounter Details Date Type Department Care Team (Late Contact Info) Description 10/23/2024 Documentation Only [facility] [address] [place] [address] Denisha Philippe [address] [place] [phone] Social History Tobacco Use Types Packs/Day Years [...] Visit [facility] [address] [place] [address] Curtis Weir MD [address] [place] [address] [place] [address] documented as of this encounter Visit Diagnoses Not on filedocumented in this encounter Care Teams Customer Service Attendant Relationship Specialty Start Date End Date Jose Avalos MD PCP - General Internal Medicine 01/28/23 documented as of this encounter
--- OUTSIDE RECORDS SUMMARY | 2025-03-01 12:12 | XMS_ITS | Encounter Summary ---
Author Organization [facility] Address [address] [place] [address] Phone Care Team Providers Care Marina Porter Name Role Phone Jose Avalos MD Primary Care Provider [phone] Encounter Details Date Type Department Care Team (Late Contact Info) Description 11/17/2023 Documentation Only [facility] [address] [place] [address] Denisha Philippe [address] [place] [phone] Social History Tobacco Use Types Packs/Day Years [...] Visit [facility] [address] [place] [address] Curtis Weir MD [address] [place] [address] [place] [address] documented as of this encounter Visit Diagnoses Not on filedocumented in this encounter Care Teams Marina Porter Relationship Specialty Start Date End Date Jose Avalos MD PCP - General Internal Medicine 01/28/23 documented as of this encounter
--- OUTSIDE RECORDS SUMMARY | 2025-03-01 12:12 | XMS_ITS | Encounter Summary ---
Author Organization [facility] Address [address] [place] [address] Care Team Providers Care Instructional Technology Instructor Name Role Phone Ricci Haro Primary Care Provid er Reason for Visit * Reason Comments PAC Clinical Questions Encounter Details Date Type Department Care Team (Late st Contact Info) Description 02/20/2025 Telephone [facility] [address] [place] [phone] Paige Pleitez CCMA PAC Clinical Questions Social History Tobacco Use Types Packs/Day Years [...] AM EDT documented as of this encounter Miscellaneous Notes * Telephone Encounter - Cira Ware (Jenn) - 02/23/2025 3:26 PM EST Pt is calling about status of clearance letter. Please reach out to pt to discuss. # [phone] * Telephone Encounter - MAXINE Hays - 02/20/2025 3:32 PM EST Copied from [facility] #[id number]. Topic: Clinical - Messages for Clinical Team >> Feb 20, 2025 3:30 PM MAXINE Rodriguez wrote: Pt calling to get a clearance letter to be able to drive again that pt PCP is asking for. Letter can be put in Mychart. Please call pt at [phone]. documented in this encounter Plan of Treatment Upcoming Encounters Date Type Department Care Team (Late st Contact Info) Description 07/23/2025 4:15 PM EDT Follow-Up [facility] [address] [place] [address] [phone] Sherif Bueno MD [address] [place] [address] [place] [address] documented as of this encounter Visit Diagnoses Not on filedocumented in this encounter Care Teams Instructional Technology Instructor Relationship Specialty Start Date End Date Ricci Haro PA [address] [place] [address] PCP - General Family Medicine 08/23/24 documented as of this encounter
--- OUTSIDE RECORDS SUMMARY | 2025-03-01 12:12 | XMS_ITS ---
Author Name [facility] Organization Unknown History of Medication Use Medication Directions Dispensed Refills Start Date End Date Stat botulinum toxin type A (BOTOX) injection SOLR 200 Units 200 Units, Intramuscular, Once, On Wed12/08/23 at 1115, For 1 dose 12/08/2023 12/08/19 completed rimegepant (Nurtec) 75 MG TBDP ODT Take 1 tablet (75 mg total) by mouth every other day. 11/30/2023 active Ubrogepant (Ubrelvy) 100 MG TABS Take 100 mg by mouth 2 (two) times a day as needed. 11/30/2023 active meloxicam (MOBIC) 15 MG tablet Take 1 tablet (15 mg total) by mouth daily. 11/23/2023 active ondansetron (ZOFRAN-ODT) 8 MG disintegrating tablet Take 1 tablet (8 mg total) by mouth every 8 (eight) hours as needed for nausea. 11/17/2022 11/30/19 aborted acetaminophen-codeine (TYLENOL #3) 300-30 MG per tablet Take 1 tablet by mouth every 6 (six) hours as needed for pain. 11/30/19 aborted amLODIPine (NORVASC) tablet 10 mg 1 tablet (10 mg total). 11/30/19 aborted amLODIPine-benazepril (LOTREL) 10-20 MG per capsule Take 1 capsule by mouth daily. 11/30/19 aborted Biotin 5000 MCG TABS Take 1 tablet by mouth daily. 11/30/19 aborted Brexpiprazole 0.5 MG TABS Take 0.5 mg by mouth daily. 11/30/19 aborted Calcium Carb-Cholecalciferol (CALCIUM 500 + D PO) Take 1 tablet by mouth every other day. 11/30/19 aborted cyclobenzaprine (FLEXERIL) 5 MG tablet Take 1 tablet (5 mg total) by mouth every night at bedtime as needed for muscle spasms. 11/30/19 aborted cycloSPORINE (RESTASIS) 0.05 % ophthalmic emulsion 1 drop 2 (two) times a day. 11/30/19 aborted erenumab-aooe (Aimovig, 140 MG Dose,) 70 MG/ML SOAJ Inject 1 mL (70 mg total) under the skin. 11/30/19 aborted escitalopram (LEXAPRO) tablet 10 mg Take 1 tablet (10 mg total) by mouth daily. 11/30/19 aborted HYDROcodone-acetaminophe n (NORCO) 5-325 MG per tablet Take 1 tablet by mouth every 6 (six) hours as needed for pain. 11/30/19 aborted linaclotide (Linzess) 145 MCG CAPS Take 1 capsule (145 mcg total) by mouth every morning before breakfast. 11/30/19 aborted LORazepam (ATIVAN) 1 MG tablet Take 1 tablet (1 mg total) by mouth daily. 11/30/19 aborted medroxyPROGESTERone (PROVERA) 5 MG tablet Take 1 tablet (5 mg total) by mouth. 11/30/19 aborted tiZANidine (ZANAFLEX) 4 MG tablet Take 1 tablet (4 mg total) by mouth every 6 (six) hours as needed. 11/30/19 aborted topiramate (TOPAMAX) 25 MG tablet Take 2 tablets (50 mg total) by mouth daily. 11/30/19 aborted albuterol 108 (90 Base) MCG/ACT inhaler Inhale 2 puffs into the lungs every 4 (four) hours as needed for wheezing. active butalbital-acetaminophen -caffeine 50-325-40 MG per tablet Take 1 tablet by mouth 2 (two) times a day. active Calcium Carbonate (CALCIUM 600 PO) Take by mouth. acti ve Diclofenac Sodium 1 % GEL Apply 1 drop topically 4 (four) times a day. active DULoxetine (CYMBALTA) DR capsule 20 mg Take 1 capsule (20 mg total) by mouth daily. active DULoxetine (CYMBALTA) DR capsule 60 mg Take 1 capsule (60 mg total) by mouth daily. active hydrocortisone (ANUSOL-HC) 2.5 % CREA perianal cream Place around the anus 2 (two) times a day. active lansoprazole (lansoprazole) 30 MG capsule Take 1 capsule (30 mg total) by mouth daily. active Lifitegrast (Xiidra) 5 % SOLN Apply to eye. active Plecanatide 3 MG TABS Take 1 tablet by mouth daily. active polyethylene glycol (MIRALAX) 17 g packet Take 17 g by mouth 2 (two) times a day. active pregabalin (LYRICA) capsule 50 mg Take 1 capsule (50 mg total) by mouth 3 (three) times a day. active Allergies Allergen Reaction Severity Comment Documented Date Source Statu s LASMIDITAN 04/30/2023 [facility] active LURASIDONE 11/02/2022 [facility] active ZOLPIDEM RASH 08/08/2020 [facility] active AMINOBENZOATE [facility] ARIPIPRAZOLE [facility] BUPROPION [facility] CELECOXIB [facility] DOXEPIN [facility] IBUPROFEN [facility] INDOMETHACIN [facility] LAMOTRIGINE [facility] LITHIUM [facility] METOCLOPRAMIDE [facility] METRONIDAZOLE [facility] NORETHINDRONE [facility] OXYCODONE [facility] OXYCODONE-ACETAMINOPHEN [facility] PREDNISONE [facility] PROMETHAZINE [facility] SUMATRIPTAN [facility] TOPIRAMATE [facility] TRAMADOL [facility] TRAZODONE Chest pain [facility] VORTIOXETINE [facility] Problems Problem Status Onset Date Problem Type Date of Resolution Source Major depression active 2014-08-23 ProblemAct C [facility] Prediabetes active 2019-03-01 ProblemAct [facility] PCOS (polycystic ovarian syndrome) active 2014-08-23 ProblemAct [facility] Intestinal malabsorption following gastrectomy active 2019-07-25 ProblemAct [facility] Generalized anxiety disorder active 2016-09-24 ProblemAct [facility] Insomnia active 2014-08-23 ProblemAct [facility] Intractable chronic migraine without aura and without status migrainosus active EncounterDiagnosisAct [facility] Gastroparesis active 2016-07-08 ProblemAct [facility] Migraines active 2014-08-23 ProblemAct [facility] Fatty liver disease, nonalcoholic active 2016-07-08 ProblemAct [facility] Prolonged Q-T interval on ECG active 2016-12-28 ProblemAct [facility] Migraine variant active EncounterDiagnosisAct [facility] Chronic migraine with aura without status migrainosus, not intractable active EncounterDiagnosisAct [facility] COY on CPAP active 2020-08-08 ProblemAct [facility] Iron deficiency anemia secondary to inadequate dietary iron intake active 2022-11-06 ProblemAct [facility]
== END 2025-03-01 10:21 | disposition home or self-care (01) ==
LOC: HO.HPHYS 09:56
PROVIDERS: Visit Provider Physical Medicine & Rehabilitation
DX: M70.61 Trochanteric bursitis, right hip (principal); M70.62 Trochanteric bursitis, left hip; M79.7 Fibromyalgia
CPT/HCPCS: 20610; 99214

== ENCOUNTER → 2025-03-01 09:55 | Outpatient (BNVA) | payer OTHER, SELFPAY | PROVIDERS: Visit Provider Physical Medicine & Rehabilitation | DX: M70.61 Trochanteric bursitis, right hip (principal); M70.62 Trochanteric bursitis, left hip; M79.7 Fibromyalgia; G89.29 Other chronic pain; M54.50 Low back pain, unspecified; F43.10 Post-traumatic stress disorder, unspecified; Z79.899 Other long term (current) drug therapy | CPT/HCPCS: 20610; 99212; J2003; J3301 ==